=== PATIENT | female | born 1950 | race African-American/Black ===

== ENCOUNTER 2019-01-19 02:06 | Inpatient (IN) | payer MEDICARE ==
[2019-01-19] MEDS ORDERED: Digoxin IV* 0.5 MG/2 ML AMP (0.25 MG/ML) IV SLOW PU ONE (02:35)
[2019-01-19] MEDS ORDERED: Metoprolol Tartrate IV* 1 MG/ML 5 ML VIAL IV ONE (02:35)
--- NOTE | 2019-01-19 02:36 | ED ---
Palpitations / Dysrhythmia - HPI Summary HPI Summary: A 68 y/o female presents to [facility] with a chief complaint of palpitations for the past few hours. She has a Hx of a-fib and claims that ever since her cardiac ablation two years ago, for about every week she has had one episode of a-fib that lasts for minutes but then is resolved. Today her heart was racing and would not stop. 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 She denies any CP. Before her ablation she had a cardioversion. She notes that she does not come into the ED for these episodes of a-fib but does meet with her senior quantity surveyor, Dr. Avila. She takes Eliquis regularly and also takes Methotrexate and Metoprolol. - History of Current Complaint Chief Complaint: EDDysrhythmPalp Time Seen by Provider: 01/19/19 02:24 Hx Obtained From: Patient Onset/Duration: Sudden Onset, Lasting Hours, Still Present Timing: Constant Severity Initially: Moderate Severity Currently: Moderate Character: Fast, Irregular Aggravating: Nothing Alleviating: Nothing Associated Signs & Symptoms: Negative - CP - Allergy/Home Medications Allergies/Adverse Reactions: Allergies Allergy/AdvReac Type Severity Reaction Status Date / Time atorvastatin Allergy Leg Cramps Verified 01/19/19 03:06 Home Medications: Home Medications Albuterol HFA INHALER* 2 puff INH Q4H PRN 01/19/19 [History Confirmed 01/19/19] Apixaban* [Eliquis*] 5 mg PO BID 01/19/19 [History Confirmed 01/19/19] Benzonatate 1 cap PO TID PRN 01/19/19 [History Confirmed 01/19/19] Cetirizine HCl [All Day Allergy] 10 mg PO DAILY PRN 01/19/19 [History Confirmed 01/19/19] Dulaglutide (NF) [Trulicity (NF)] 1 dose SUBCUT WEEKLY 01/19/19 [History Confirmed 01/19/19] Folic Acid TAB* [Folvite TAB*] 1 tab PO DAILY 01/19/19 [History Confirmed ] Hydroxychloroquine Sulfate [Plaquenil] 200 mg PO BID 01/19/19 [History Confirmed 01/19/19] Methotrexate TAB* 2.5 mg PO SEE INSTRUCTIONS 01/19/19 [History Confirmed ] Metoprolol Tartrate TAB* [Lopressor TAB*] 50 mg PO BID 01/19/19 [History Confirmed 01/19/19] Multivit-Min/Iron/Folic/Lutein [Centrum Silver Women Tablet] 1 tab PO DAILY 05/02 [History Confirmed 01/19/19] Omeprazole 20 mg PO DAILY 01/19/19 [History Confirmed 01/19/19] Rosuvastatin Calcium 20 mg PO DAILY 01/19/19 [History Confirmed 01/19/19] Torsemide TAB* [Demadex 20 MG*] 20 mg PO DAILY 01/19/19 [History Confirmed 01/19] metFORMIN* [Glucophage 500 MG TAB *] 500 mg PO DAILY 01/19/19 [History Confirmed 01/19/19] PMH/Surg Hx/FS Hx/Imm Hx Endocrine/Hematology History: Reports: Hx Diabetes - TYPE II Denies: Hx Anticoagulant Therapy Cardiovascular History: Reports: Hx Angina, Hx Hypercholesterolemia, Hx Valvular Heart Disease - MURMUR OF UNKNOWN ORIGIN STATED PT, Other Cardiovascular Problems/Disorders - PT.STATES SHE HAS AN IRREGULAR HEART BEAT Denies: Hx Hypertension, Hx Pacemaker/ICD Respiratory History: Reports: Hx Asthma - PT states brought on by allergies History: Reports: Other Problems/Disorders - pt reports hx of stress incontintnce Denies: Hx Renal Disease Musculoskeletal History: Reports: Hx Arthritis, Hx Rheumatoid Arthritis Sensory History: Reports: Hx Contacts or Glasses Denies: Hx Hearing Aid Opthamlomology History: Reports: Hx Contacts or Glasses Psychiatric History: Reports: Hx Depression Denies: Hx Panic Disorder - Surgical History Surgery Procedure, Year, and Place: left total knee replacement; hysterectomy, HEART CATH - NO STENTS Hx Anesthesia Reactions: No Infectious Disease History: No Infectious Disease History: Denies: Traveled Outside the [place] in Last 30 Days - Family History Known Family History: Negative: Blood Disorder - Social History Alcohol Use: None Substance Use Type: Reports: None Smoking Status (MU): Never Smoked Tobacco Review of Systems Negative: Fever Positive: Palpitations - a-fib, "heart is racing". Negative: Chest Pain Positive: Headache All Other Systems Reviewed And Are Negative: Yes Physical Exam - Summary Physical Exam Summary: VITAL SIGNS: Reviewed. GENERAL: Patient is a morbidly obese FEMALE who is lying comfortable in the stretcher. Patient is not in any acute respiratory distress. HEAD AND FACE: No signs of trauma. No ecchymosis, hematomas or skull depressions. No sinus tenderness. EYES: PERRLA, EOMI x 2, No injected conjunctiva, no nystagmus. EARS: Hearing grossly intact. Ear canals and tympanic membranes are within normal limits. MOUTH: Oropharynx within normal limits. NECK: Supple, trachea is midline, no adenopathy, no JVD, no carotid bruit, no c- spine tenderness, neck with full ROM CHEST: Symmetric, no tenderness at palpation LUNGS: Clear to auscultation bilaterally. No wheezing or crackles. CVS: Irregular tachycardia, S1 and S2 present, no murmurs or gallops appreciated. ABDOMEN: Soft, non-tender. No signs of distention. No rebound no guarding, and no masses palpated. Bowel sounds are normal. EXTREMITIES: FROM in all major joints, no edema, no cyanosis or clubbing. NEURO: Alert and oriented x 3. No acute neurological deficits. Speech is normal and follows commands. SKIN: Dry and warm Triage Information Reviewed: Yes Vital Signs On Initial Exam: Initial Vitals Temp Pulse Resp BP Pulse Ox 97.2 F 109 18 126/96 100 01/19/19 02:09 01/19/19 02:09 01/19/19 02:09 01/19/19 02:09 01/19/19 02:09 Vital Signs Reviewed: Yes Diagnostics - Vital Signs Vital Signs Temp Pulse Resp BP Pulse Ox 01/19/19 02:09 97.2 F 109 18 126/96 100 - Laboratory Result Diagrams: 01/20/19 05:43 01/20/19 07:14 Lab Statement: Any lab studies that have been ordered have been reviewed, and results considered in the medical decision making process. - EKG 02:20 Cardiac Rate: Other Rate - Atrial fibrillation at 123 bpm EKG Rhythm: Atrial Fibrillation Summary of EKG Findings: EKG at 02:20 showed Atrial fibrillation at 123 bpm. Re-Evaluation - Re-Evaluation First Eval Re-Evaluation Time: 04:27 Change: Unchanged Comment: I offered the patient cardioversion but the patient declined. Second Eval Re-Evaluation Time: 05:05 Change: Unchanged Comment: Discussed plan for admission. Course/Dx - Course Course Of Treatment: A 68 y/o female presents to [facility] with a chief complaint of palpitations. She has a Hx of a-fib and claims that her heart was racing and would not stope. She also has a EATON but denies CP. The physical exam revealed irregular tachycardia and that she is morbidly obese. In the ED course the patient was given Metoprolol IV, Digoxin IV and Sodium chloride IV. EKG at 02: 20 showed Atrial fibrillation at 123 bpm. Bloodwork and chemistries obtained. I offered the patient cardioversion but the patient declined. After the patient was given Cardizem 20 mg IV push she experienced frequent pauses with dizziness. One hour from the Cardizem bolus the pauses have resolved. Patient's HR is around [address] Discuss[address] case [address] Cole, hospitalist, who accepted the patient for admission. Pt will be admitted for observation and is agreeable with this plan. - Diagnoses Provider Diagnoses: Atrial fibrillation - Critical Care Time Critical Care Time: 30-74 min - 40 mins Discharge - Sign-Out/Discharge Documenting (check all that apply): Patient Departure - admit Patient Received Moderate/Deep Sedation with Procedure: No - Discharge Plan Condition: Fair Disposition: ADMITTED TO [facility] - Billing Disposition and Condition Condition: FAIR Disposition: Admitted to [facility] - Attestation Statements Document Initiated by Gloria: Yes Documenting Scribe: Mohamud Marshall Provider For Whom Gloria is Documenting (Include Credential): Giorgi Collado MD Scribe Attestation: Mohamud Andersen scribed for Giorgi Collado MD on 01/20/19 at 1945. Scribe Documentation Reviewed: Yes Provider Attestation: The documentation as recorded by the Mohamud lo accurately reflects the service I personally performed and the decisions made by me, Giorgi Collado MD Status of Scribe Document: Viewed
[2019-01-19] MEDS: NS 0.9% 1000 ML** 1,000 ML IV ONE ×2 (02:45→05:05)
[2019-01-19 02:56] LABS: ABS Eosinophils 0.2 10^3/ul (0-0.6); ABS Lymphocytes 0.8 10^3/ul (1.0-4.8); ABS Monocytes 0.4 10^3/ul (0-0.8); ABS Neutrophils 1.9 10^3/ul (1.5-7.7); Eosinophil % 4.9 %; Hematocrit 33 % (35-47); Hemoglobin 11.1 g/dL (12.0-16.0); Lymphocyte % 25.6 %; Mean Corpuscular HGB Conc 33 g/dL (31-36); Mean Corpuscular Hemoglobin 32 pg (27-31); Mean Corpuscular Volume 97 fL (80-97); Mean Platelet Volume 9.1 fL (7.4-10.4); Platelet Count 171 10^3/uL (150-450); Red Blood Count 3.46 10^6 /uL (3.70-4.87); Red Cell Distribution Width 15 % (10.5-15); White Blood Count 3.3 10^3/uL (3.5-10.8)
[2019-01-19 03:03] LABS: Activated Partial Thrombo Time 33.5 seconds (26.0-36.3); INR 1.17 (0.82-1.09)
[2019-01-19 03:14] LABS: Albumin 4.1 g/dL (3.2-5.2); Albumin/Globulin Ratio 1.3 (1-3); BUN/Creatinine Ratio 20.8 (8-20); Calcium 9.6 mg/dL (8.6-10.3); EGFR African American 44.1 (>60); EGFR Non-African American 36.4 (>60); Globulin 3.1 g/dL (2-4); Magnesium 1.8 mg/dL (1.9-2.7); Potassium 3.5 mmol/L (3.5-5.0); Total Bilirubin 1.3 mg/dL (0.2-1.0); Total Protein 7.2 g/dL (6.4-8.9)
[2019-01-19 03:16] LABS: Troponin I 0.02 ng/mL (<0.04)
[2019-01-19 03:48] LABS: TSH (Thyroid Stimulating Horm) 3.6 mcIU/mL (0.34-5.60)
[2019-01-19] MEDS ORDERED: Diltiazem IV push/loading dose 5 MG/ML 5 ML vial (25 mg) IV SLOW PU ONE (04:27)
[2019-01-19] MEDS ORDERED: Calcium Gluconate INJ* 1 GM in NS 0.9% 100 ML* 100 ML IVPB ONE ×2 (05:08→05:18)
[2019-01-19] MEDS ORDERED: Ondansetron INJ* 2 MG/ML VIAL IV PRN (05:51)
[2019-01-19] MEDS ORDERED: Acetaminophen TAB* 325 MG PO PRN (05:51)
[2019-01-19] MEDS ORDERED: Magnesium Sulfate 1 GM IV* 1 GM/100 ML BAG IV ONE (05:51)
[2019-01-19] MEDS ORDERED: Al Hydrox/Mg Hydrox/Simet LIQ* 30 ML UDC PO PRN (05:51)
[2019-01-19] MEDS ORDERED: Albuterol HFA INHALER* 8 gm MDI INH PRN (05:54)
[2019-01-19] MEDS ORDERED: Dextrose 50% Syringe 50 ML* 25 GM/50 ML SYRINGE IV PUSH PRN (05:56)
[2019-01-19 06:55] LABS: HDL Cholesterol 44.9 mg/dL
[2019-01-19 06:56] LABS: Troponin I 0.02 ng/mL (<0.04)
[2019-01-19] MEDS ORDERED: Metoprolol Tartrate TAB* 50 mg PO SCH (09:00)
[2019-01-19] MEDS ORDERED: Apixaban* 5 MG TAB PO SCH (09:00)
--- NOTE | 2019-01-19 09:13 | HP ---
CC: Natalie Harris MD; Dr. Avila* HISTORY AND PHYSICAL: DATE OF ADMISSION: 01/19/19 TIME OF EVALUATION: 0600 PRIMARY CARE PHYSICIAN: Natalie Harris MD. PUBLIC ADDRESS SYSTEM OPERATOR: Dr. Avila. CHIEF COMPLAINT: Palpitations. HISTORY OF PRESENT ILLNESS: This is a 68-year-old female with a past medical history of paroxysmal atrial fibrillation, on Eliquis, who presents to the emergency room with palpitations and elevated blood pressure. The patient states she went to bed around 1215, and about 15 minutes while resting in bed, she noticed palpitation with heart racing. She does get these episodes now about once a week. Normally, if she takes a deep breath and relax, the palpitations resolve on their own. However, 15 to 20 minutes later, she still was having palpitation. She got up to check her blood pressure, it was very high and she was also having a posterior headache. She thought she will come to the emergency room for further evaluation because she never had a blood pressure that high before. The patient denies any fever. No URI symptoms. She has had an unintentional 4-pound weight loss, normal lower extremity swelling. She had 1 sharp episode of left-sided chest pain and a few twinges here and there. No shortness of breath. No diaphoresis. No nausea. She is scheduled to follow up next week with Dr. Avila to have an echocardiogram. She has not had a stress test in a while. Currently, she is dizzy. In the emergency room, the patient had labs and imaging. She was initially given Lopressor [address] Collado offered a cardioversion. She declined stating she has had this in the past and it does not work for her. He discussed lowering her rate and having her follow up with her lease administrator, which is what she wanted. She was given Cardizem 20 mg. Shortly after that, she developed several frequent pauses 3 to 6 seconds with associated dizziness. At that point, the patient was referred to the hospitalist service for further evaluation. PAST MEDICAL HISTORY: 1. Paroxysmal atrial fibrillation, status post ablation and cardioversion, followed by Dr. Avila. 2. Rheumatoid arthritis. 3. Asthma. 4. Seasonal allergies. 5. Osteoporosis. 6. Stress incontinence. 7. Osteoarthritis. 8. Diabetes. 9. Obstructive sleep apnea, on CPAP of 9. MEDICATIONS: 1. Metformin 500 mg p.o. daily. 2. Plaquenil 200 mg p.o. b.i.d. 3. Benzonatate 1 cap p.o. t.i.d. as needed. 4. Demadex 20 mg p.o. daily. 5. Dulaglutide 1 dose subcu weekly. 6. Rosuvastatin 20 mg daily. 7. Omeprazole 20 mg daily. 8. Metoprolol 50 mg p.o. b.i.d. 9. Methotrexate 2.5 mg take 3 tabs weekly. 10. Folic acid 1 tab daily. 11. Cetirizine 10 mg p.o. daily as needed. 12. Centrum daily. 13. Eliquis 5 mg p.o. b.i.d. 14. Albuterol 2 puffs inhaled q.4 hours as needed. ALLERGIES: ATORVASTATIN, leg cramps. FAMILY HISTORY: Mother at age 47 related to complicated dermatomyositis and an [place]. Father from kidney cancer and diabetes at age 73. SOCIAL HISTORY: The patient lives at home with her , who is her healthcare proxy. 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 No history of smoking, alcohol, or illicit drug use. Code status is full code. REVIEW OF SYSTEMS: A 14-point review of systems as mentioned in the HPI, otherwise negative. PHYSICAL EXAMINATION GENERAL: No acute distress, resting comfortably. VITAL SIGNS: Temp is 97.2, pulse rate varies from 90 to 100 with frequent 3- to 6- second pauses, respiratory rate 14, oxygen saturation 99% on room air, blood pressure 131/72. HEENT: Head: Normocephalic. Pupils equal and reactive, anicteric. Oropharynx : Mucous membranes moist. NECK: Supple. No adenopathy. RESPIRATORY: Diminished breath sounds. No wheezes, rhonchi, or rales. CARDIAC: Irregularly irregular rate and rhythm. Soft systolic murmur heard throughout. ABDOMEN: Morbidly obese, soft, nontender, nondistended. EXTREMITIES: Trace pedal edema, +1 DP. NEUROLOGIC: Alert and oriented x3. No gross focal neurologic deficits. LABORATORY DATA: White count 3.3, hemoglobin 11.1, hematocrit 33, platelets 171. INR is 1.17. Sodium 140, potassium 3.5, chloride 102, bicarb 30, BUN 30, creatinine 1.44, glucose 139, mag is 1.8, total bili is 1.30. TSH is 3.6. RADIOGRAPHIC DATA: EKG shows rapid atrial fibrillation with a rate of 123. ASSESSMENT: This is a 68-year-old female with past medical history of paroxysmal atrial fibrillation, who presents to the emergency room with palpitations and elevated blood pressure, subsequently after getting rate controlling medications developed frequent pauses. 1. Rapid atrial fibrillation now with frequent pauses. Assessment: Likely related to the medication she received, most likely culprit was Cardizem as she did not have pauses prior to getting Cardizem. It did not seem to be acute coronary syndrome contributing to her paroxysmal atrial fibrillation. It seems this is an ongoing issue for her and may need some improvement in her rate controlling medications, possibly uptitrating her metoprolol, but would not do this right now in the setting of her frequent pauses. Plan: We will admit her for observation to [address] [place] [address]. We will order an echo, trend her troponin, and we will continue her on metoprolol but we will hold if she continues to have frequent pauses. The patient does not seemed to tolerate diltiazem. Recommend avoiding this medication altogether. If she continues to have pauses or issues with rapid atrial fibrillation and challenges with rate control, recommend cardiology consultation. We will also continue on her Eliquis. 2. Bump in BUN and creatinine, could be related to her rapid atrial fibrillation. We will hold her torsemide today, renally dose her medications and I am going to repeat her labs in the morning. 3. Diabetes. Hold her oral agents, place her on lispro sliding scale, check hemoglobin A1c, and place her on a consistent carb diet. 4. Gastroesophageal reflux disease. Continue her on pantoprazole. 5. Rheumatoid arthritis. Hold her methotrexate. Continue on her Plaquenil. 6. Asthma. Continue on albuterol inhaler as needed. 7. FEN: Diabetic diet. 8. DVT prophylaxis: The patient's scores high risk. She is on Eliquis. 9. Code status: Full code. PATIENT TIME: Greater than 40 minutes was spent doing the history of and physical, more than half the time spent in direct patient contact. [id number]/[facility] #: [id number] RAJAN
[2019-01-19] MEDS: Insulin LISPRO* 1 UNITS UNIT SUBCUT SCH ×3 (09:51→17:11)
[2019-01-19] MEDS: Folic Acid TAB* 1 MG PO SCH (09:54)
[2019-01-19] MEDS: Hydroxychloroquine TAB* 200 MG PO SCH ×2 (09:55→20:22)
[2019-01-19] MEDS: Pantoprazole TAB * 40 MG TAB PO SCH (09:55)
[2019-01-19] MEDS: CMC: Rosuvastatin (NF) 20 MG TAB PO SCH (12:21)
[2019-01-19] MEDS ORDERED: Potassium Chlor TAB* 20 MEQ TAB.ER PO ONE (12:48)
--- NOTE | 2019-01-19 13:53 | CONS ---
CONSULTATION REPORT: DATE OF CONSULT: 01/19/19 ATTENDING PHYSICIAN: Dr. Karel Conn, Cardiology* (dictated by Carmelina Burk NP). PRIMARY OPERATING ROOM SURGICAL TECHNICIAN: Dr. Avila. REASON FOR CONSULTATION: Tachybrady syndrome with a 6-second sinus pause. CHIEF COMPLAINT: Elevated blood pressure, palpitations, dizziness. HISTORY OF PRESENT ILLNESS: This is a pleasant 68-year-old female patient with a notable history of A-flutter with successful typical A-flutter ablation in December 2016 on Eliquis and Lopressor therapy in addition to type 2 diabetes mellitus, hyperlipidemia, rheumatoid arthritis, sleep apnea, and venous insufficiency. She states that it is not unusual for her to manifest symptoms of A-flutter, which historically had been palpitations with a sensation of her heart racing every 2 to 3 weeks; however, she has noticed increased frequency and symptomatology over the last couple of months. Retrospectively, she realized she has also had increased dizziness and lightheadedness and in fact last Thursday after standing up and walking to her car, she developed profound dizziness. Denies syncope. She does report palpitations intermittently as well. This morning around 12:15 a.m. after lying down in bed, she developed a sensation of her heart racing with palpitations. Apparently, she rested for 15 minutes, she got up and took her blood pressure and it was 170/105, symptoms were ongoing, thus she presented to [facility] for further evaluation. While being evaluated in the emergency department, she was noted to be in AFib/flutter with labile heart rate control ( HR 100), she was given 0.5 mcg of IV digoxin at 0246 followed by 5 mg of IV Lopressor 0252 followed by 20 mg if IV diltiazem at 0437. Then, 30 minutes after being given IV diltiazem, she had a nearly 6-second pause captured on telemetry with symptoms of dizziness at that tyler, however after trending telemetry it appears at 1246am prior to administration of AVN agents she had a 4.5 second pause.. She was admitted to the 4th floor and we were asked to see the patient in consultation due to tachybrady syndrome with sinus arrest. She has continued to have pauses up to 5 seconds with correlation of dizziness, lightheadedness. No syncope. She denies chest pain, dyspnea on exertion, recent infection, hospitalization, or changes in medications. Last ischemic evaluation according to Dr. Tera Avila who I personally spoke with on the phone was via a dobutamine stress echo in 2011, PAT was induced at that time; however, there was no ischemia. Last heart catheterization according to Dr. Tera Avila was in 1993, the patient had normal coronary arteries at that time. PAST MEDICAL HISTORY: Includes: 1. PAT. 2. A-flutter. 3. Diabetes. 4. Hyperlipidemia. 5. Rheumatoid arthritis. 6. GERD. 7. Sleep apnea. 8. Venous insufficiency. PAST SURGICAL HISTORY: Includes: 1. Left total knee arthroplasty. 2. EP study with failure to ablate A tach. 3. Successful typical A-flutter in December 2016. 4. Partial hysterectomy. 5. Tubal ligation. HOME MEDICATIONS: Per admission med rec. ALLERGIES: Include LIPITOR, which causes myalgias. FAMILY HISTORY: Noncontributory. SOCIAL HISTORY: The patient denies tobacco abuse, alcohol abuse, or drug abuse. 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 She is and lives at home with her . She remains active by babysitting her 9-month-old grandson. REVIEW OF SYSTEMS: All systems have been reviewed and otherwise negative except what is above mentioned in the HPI. PHYSICAL EXAM: Temperature 97.3, heart rate 98, respirations 18, blood pressure 130/89. General: The patient is lying in bed comfortable; upon entering the room offers no complaints. Appears in no apparent distress, although she was having intermittent dizziness with pauses while I was examining her. HEENT: Head is atraumatic, normocephalic. Oral mucosa is moist. Tongue is midline. Neck: Supple. Trachea midline. Unfortunately due to body habitus, I am unable to assess for JVD. No thyromegaly noted. Cardiac : Normal S1, S2. Irregular rate and rhythm. No murmur, rub, or gallop noted. Lungs: Auscultated posteriorly. No evidence of adventitious breath sounds. Respirations are nonlabored. /GI: Abdomen is obese, nontender, normoactive bowel sounds x4. Extremities: No pitting edema. No clubbing. No cyanosis. Positive varicose veins. Skin: Intact. No evidence of jaundice, rashes, or ecchymosis appreciated. DIAGNOSTIC STUDIES/LAB DATA: Blood work: White count 3.3, hemoglobin 11.1, hematocrit 33, platelets 171. Sodium 140, potassium 3.5, chloride 102, carbon dioxide 30, BUN 30, creatinine 1.4, magnesium 1.8. Troponin negative x2. Hemoglobin A1c is 7.3. Bilirubin 1.3. EKG demonstrates A-flutter 2:1 To 3:1 conduction with rate of 100. Telemetry reviewed; the patient has been in AFib/A-flutter with periods of bradycardia, heart rate in the 40s with pauses upwards of 5 seconds with periods of RVR. ASSESSMENT AND PLAN: 1. History of paroxysmal fibrillation/flutter with now tachybrady syndrome. The patient has had symptomatic episodes of sinus arrest upwards of 6 seconds. Initial episode occurred at 1246 lasting 4.5 seconds prior to administration of IV digoxin, IV Lopressor, and IV diltiazem therapy. The patient was previously on Lopressor and was having intermittent episodes of dizziness retrospectively the last 2 to 3 months. She reports compliance with Eliquis therapy. Recommendation is dual-chamber pacemaker implantation. I did speak to her primary buying intern, Dr. Tera Avila and updated him with recommendations. We will speak to Dr. Vaughan in reference to arranging the date and time of procedure. 2. Renal insufficiency. Creatinine 1.4, upon further review it looks like her previous baseline was 1 to 1.2. 3. History of hyperlipidemia, on statin therapy. Goal LDL less than 70 given history of diabetes. 4. History of sleep apnea. The patient reports compliance with CPAP therapy. 5. Disposition pending course. The patient is full code. We will speak to Dr. Vaughan about arranging for DC pacemaker implantation. Dr. Conn has personally seen and examined the patient and agrees with the above assessment and plan. Any future questions or concerns, please do not hesitate to contact our practice. CARMELINA BURK NP [id number]/[facility] #: [id number] Patient seen and examined, chart reviewed, d/w Ms. Burk and Dr. Bhatt and Dr. Vaughan am 01/19.. Patient with h/o PAFib , ablation , with recnent progression in tachybrady and dizziness. Noted to have prolonged pauses at approx 12:30 am 01/19 event before addition of digoxin. Patient with recurrent and symptomatic pauses over the course of 01.19.19. Given above findings, I concur with referral for permanant pacer. DDD implant will be delayed in order to allow anticoagulation to reverse Hold eliquis. Transfer to ICU and monitor on bedrest. DR. Bhatt kindly agreed to implant temporary transvenous pacer to prevent prolonged pauses /bradycardia while awaiting permanent pacer. LISSY 01.21.19. MTDD
--- NOTE | 2019-01-19 13:53 | PN ---
Progress Note - Progress Note Date of Service: 01/19/19 Note: Bri has had continued frequent sinus pauses lasting up to 8sec now. The patient has been transferred to the ICU for closer monitoring and possible insertion of a temporary pacemaker. Cardiology consult appreciated. Follow up recommendations from Dr. Bhatt. For now she will have external pacer pads in place.
[2019-01-19] MEDS ORDERED: Midazolam* 1 MG/ML 5 ML VIAL (5 MG) ONE (14:21)
[2019-01-19] MEDS ORDERED: Lidocaine 1% INJ* 10 MG/ML 30 ML SDV ONE (14:21)
[2019-01-19] MEDS ORDERED: fentaNYL* 50 MCG/ML 2 ML VIAL (100 MCG VIAL) ONE (14:21)
--- NOTE | 2019-01-19 15:48 | ECHO ---
*[facility]* [place] [address] Fax #: [phone] Transthoracic Echocardiogram Patient: Robert, Height: 66 in / Bri Beckman 167.6 cm : 1950 Weight: 278.4 lb / Study Date: 01/19/2019 126.6 kg Age: 68 BP: 113 / 73 Gender: F BMI/BSA: 45 kg/m^2 / HR: 93 bpm 2.3 m^2 *[employer]: * Jen King [facility] *Referring Physician: * Maria Teresa Cole *Reading Physician: * Karel Conn MD Indications: Abnormal EKG. History: Murmur. Atrial fibrillation. Risk factors: Hypertension. Diabetes mellitus. Dyslipidemia. Conclusions Summary: 1. Left ventricle: Systolic function is mildly to moderately reduced. The estimated ejection fraction is 40-45%. Systolic function is worse from the study of April 2015. Decreased from 50-55% in 2015. Moderate diffuse hypokinesis. 2. Mitral valve: There is moderate regurgitation. 3. Tricuspid valve: There is mild regurgitation. Study data: Transthoracic echocardiogram. Procedure: Transthoracic echocardiography was performed. Image quality was fair. Complete 2D, spectral Doppler, and color flow Doppler. Location: Bedside. Patient status: Inpatient. The previous study was not available, so comparison is made to the report of April 2015. Rhythm: Atrial fibrillation. Findings Left ventricle: The cavity size is normal. Wall thickness is mildly to moderately increased. Systolic function is mildly to moderately reduced. The estimated ejection fraction is 40-45%. Systolic function is worse from the study of April 2015. Moderate diffuse hypokinesis. Left ventricular diastolic function parameters are indeterminate. Right ventricle: The cavity size is normal. Wall thickness is mildly increased. Systolic function is normal. Systolic pressure is within the normal range. Left atrium: The atrium is severely dilated. Right atrium: The atrium is mildly to moderately dilated. Mitral valve: The leaflets are normal thickness. There is no evidence of stenosis. There is moderate regurgitation. The peak diastolic gradient is 3.4 mm Hg. Aortic valve: The valve is trileaflet. The leaflets are normal thickness. There is no evidence of stenosis. There is no significant regurgitation. The ratio of LVOT to aortic valve peak velocity is 0.77. The peak systolic gradient is 4.0 mm Hg. Tricuspid valve: The leaflets are normal thickness. There is no evidence of stenosis. There is mild regurgitation. Pulmonic valve: Not well visualized. There is no significant regurgitation. The peak systolic gradient is 2.0 mm Hg. Aorta: The aorta is normal. Pericardium: There is no significant pericardial effusion. Pulmonary arteries: Not well visualized. Systemic veins: Inferior vena cava: The vessel is normal in size. The respirophasic diameter changes are in the normal range (>= 50%). Measurements Left ventricle Value Ref Aortic valve Value Ref FADIA, LAX 4.2 cm 3.8 - 5.2 Indira diam, ED 2.2 cm ----- ESD, LAX 2.9 cm 2.2 - 3.5 Peak v, S 1.04 m/sec ----- FS, LAX 31 % 27 - 45 Peak grad, S 4.0 mm Hg ----- PW, ED, LAX (H) 1.2 cm 0.6 - 0.9 EF 60 % 54 - 74 Mitral valve Value Ref E', lat indira, TDI 13.0 cm/sec >=10.0 Peak E 0.92 m/sec --- -- E/e', lat indira, 7 Peak A 0.01 m/sec ----- TDI Decel time 100 ms ----- E', med indira, TDI 10.0 cm/sec >=7.0 Peak grad, D 3.4 mm Hg --- -- E/e', med indira, 9 Peak E/A ratio 131.9 ----- TDI E', avg, TDI 11.5 cm/sec Pulmonic valve Value Ref E/e', avg, TDI 8 <=14 Peak v, S 0.72 m/sec --- -- Peak grad, S 2.0 mm Hg ----- LVOT Value Ref Peak joceline, S 0.8 m/sec Tricuspid valve Value Ref TR peak v 2.01 m/sec <=2.8 Ventricular septum Value Ref Peak RV-RA grad, S 16 mm Hg ----- IVS, ED, LAX (H) 1.5 cm 0.6 - 0.9 IVS, ED (H) 1.5 cm 0.6 - 0.9 Aortic root Value Ref Root diam 3.1 cm <4.4 Right ventricle Value Ref FADIA, LAX 2.8 cm Aortic arch Value Ref FADIA minor ax, A4C 2.8 cm 1.9 - 3.5 Arch diam 2.4 cm ----- mid Pressure, S 24 mm Hg Decending aorta Value Ref Anayeli peak joceline 0.51 m/sec ----- Left atrium Value Ref AP dim, ES (H) 4.70 cm 2.70 - Pulmonary artery Value Ref 3.80 Pressure, S 22.0 mm Hg ----- ML dim, A4C 5.8 cm SI dim, A4C 7.3 cm Inferior vena cava Value Ref Vol/bsa, ES, 1-p (H) 57 ml/m^2 11 - 40 Diam 2.0 cm ----- A4C Right atrium Value Ref SI dim, ES (H) 5.4 cm 3.4 - 5.3 ML dim, ES, A4C (H) 4.8 cm 2.6 - 4.4 Estimated RAP 8 mm Hg Legend: (L) and (H) dwain values outside specified reference range. Prepared and electronically signed by Karel Conn MD 01/19/2019 15:47
--- NOTE | 2019-01-19 17:33 | CATH ---
CC: Dr. Karel Conn; Dr. Milan Vaughan; Dr. Tera Avila; Dr. Natalie Harris at [facility] on [facility] in [place]* TEMPORARY PACEMAKER PLACEMENT: DATE OF PROCEDURE: 01/19/19 INDICATION FOR THE PROCEDURE: The patient has a history of atrial fibrillation and has been noted to have marked pauses up to 8 seconds in nature, but is on Eliquis. Request was made by Dr. Karel Conn for placement of a temporary pacemaker wire in order to allow the Eliquis to wear off before Dr. Milan Vaughan performs a permanent pacemaker placement. APPROACH: Of note, the right arm was assessed to try to see if the basilic vein was of a size that could easily be cannulated for temporary pacemaker placement. Unfortunately, it was not and as such the right femoral vein approach was utilized. EQUIPMENT: 1. Right femoral vein sheath, 11-Andorran, 5-Andorran sheath. 2. Pacing wire, a 5-Andorran [place]s flow directed pacing wire. MEDICATIONS GIVEN: A total of 37.5 mcg of fentanyl were given intravenously, 1 mg of Versed, 1% Xylocaine was utilized locally. DESCRIPTION OF PROCEDURE: The patient was prepped and draped in a sterile fashion. A formal time-out was performed. The right femoral vein was cannulated under ultrasound guidance utilizing a microcatheter. Following this , this was exchanged for a 5-Andorran sheath. Following this, the 5-Andorran flow directed pacing wire was advanced to the RV apex and checked for capture and sensitivity, captured down to less than 0.5 mA. It was then set to an mA of 6, backup rate of 40 with full demand. The pacemaker and sheath were sutured in place. RESULTS: Successful placement of a temporary pacing wire in light of the patient's profound pauses while waiting for Eliquis anticoagulation effect to wear off. [id number]/[facility] #: [id number] [facility]
--- NOTE | 2019-01-19 21:17 | PN ---
Progress Note - Progress Note Date of Service: 01/19/19 Note: Per RN patient is supposed to be supine all night s/p pacemaker placement. Unable to get on bedpan in time and is having frequent incontinent episodes, requesting a villarreal. Villarreal ordered
[2019-01-20 05:55] LABS: ABS Eosinophils 0.1 10^3/ul (0-0.6); ABS Lymphocytes 0.7 10^3/ul (1.0-4.8); ABS Monocytes 0.3 10^3/ul (0-0.8); ABS Neutrophils 2.2 10^3/ul (1.5-7.7); Hematocrit 36 % (35-47); Hemoglobin 11.8 g/dL (12.0-16.0); Lymphocyte % 19.4 %; Mean Corpuscular HGB Conc 33 g/dL (31-36); Mean Corpuscular Hemoglobin 32 pg (27-31); Mean Corpuscular Volume 97 fL (80-97); Mean Platelet Volume 8.8 fL (7.4-10.4); Platelet Count 169 10^3/uL (150-450); Red Blood Count 3.66 10^6 /uL (3.70-4.87); Red Cell Distribution Width 15 % (10.5-15); White Blood Count 3.4 10^3/uL (3.5-10.8)
[2019-01-20 06:04] LABS: BUN/Creatinine Ratio 17.7 (8-20); Blood Urea Nitrogen 17 mg/dL (6-24); CO2 Carbon Dioxide 23 mmol/L (22-32); Chloride 109 mmol/L (101-111); EGFR African American 70.4 (>60); EGFR Non-African American 58.1 (>60); Glucose 119 mg/dL (70-100); Sodium 137 mmol/L (135-145)
[2019-01-20 06:06] LABS: Anion Gap 5 mmol/L (2-11)
[2019-01-20] MEDS: Insulin LISPRO* 1 UNITS UNIT SUBCUT SCH ×3 (07:09→17:48)
[2019-01-20] MEDS ORDERED: ceFAZolin VIAL(*) 1 GM in NS 0.9% 50 ML* 50 ML IVPB ONE (07:49)
[2019-01-20] MEDS ORDERED: ceFAZolin 2 GM PREMIX in ORs 2 GM/50 ML BAG IVPB ONE (07:49)
[2019-01-20] MEDS: Folic Acid TAB* 1 MG PO SCH (07:56)
[2019-01-20] MEDS: Pantoprazole TAB * 40 MG TAB PO SCH (07:56)
[2019-01-20] MEDS: CMC: Rosuvastatin (NF) 20 MG TAB PO SCH (07:56)
[2019-01-20] MEDS: Hydroxychloroquine TAB* 200 MG PO SCH ×2 (07:56→20:23)
[2019-01-20 08:11] LABS: Potassium Redraw 3.7 mmol/L (3.5-5.0)
--- NOTE | 2019-01-20 08:46 | PN ---
Subjective Date of Service: 01/20/19 Interval History: Pt is feeling well. She has not had any more dizzy spells. She has had intermittent pacing per nursing notes. The patient met Dr. Vaughan this AM and is on the schedule for tomorrow at 0700 for a permanent pacer. Objective Active Medications: Acetaminophen (Tylenol Tab*) 650 mg PO Q4H PRN PRN Reason: FEVER/PAIN Al Hydrox/Mg Hydrox/Simethicone (Maalox Plus*) 30 ml PO Q6H PRN PRN Reason: INDIGESTION Albuterol (Ventolin Hfa Inhaler*) 2 puff INH Q4H PRN PRN Reason: SOB/WHEEZING Dextrose (D50w Syringe 50 Ml*) 12.5 gm IV PUSH .FOR FS < 60 - SS PRN PRN Reason: FS < 60 Enoxaparin Sodium (Lovenox(*)) 60 mg SUBCUT Q24H [facility] Stop: 01/20/19 23:59 Folic Acid (Folvite Tab*) 1 mg PO DAILY [facility] Last Admin: 01/20/19 07:56 Dose: 1 mg Hydroxychloroquine Sulfate (Plaquenil Tab*) 200 mg PO BID [facility] Last Admin: 01/20/19 07:56 Dose: 200 mg Sodium Chloride (Ns 0.9% 1000 Ml) 1,000 mls @ 100 mls/hr IV PER RATE [facility] Stop: 01/21/19 12:00 Cefazolin Sodium/Dextrose (Kefzol 2 Gm Premix In Ors(*)) 2 gm in 50 mls @ 100 mls/hr IVPB 0700 ONE Stop: 01/21/19 07:29 Cefazolin Sodium 1 gm/ Sodium (Chloride) 10 mls @ 0 mls/hr .SEE ORDER ONCE ONE Stop: 01/21/19 07:01 Insulin Human Lispro (Humalog*) 0 units SUBCUT AC [facility]; Protocol Last Admin: 01/20/19 07:09 Dose: Not Given Ondansetron HCl (Zofran Inj*) 4 mg IV Q4H PRN PRN Reason: NAUSEA/VOMITING Pantoprazole Sodium (Protonix Tab*) 40 mg PO DAILY [facility] Last Admin: 01/20/19 07:56 Dose: 40 mg Rosuvastatin Calcium (Crestor (Nf)) 20 mg PO DAILY [facility] Last Admin: 01/20/19 07:56 Dose: 20 mg Vital Signs - 8 hr 01/20/19 01/20/19 01/20/19 01:00 01:01 01:06 Temperature 98.1 F 98.1 F 97.7 F Pulse Rate 86 91 92 Respiratory 19 20 21 Rate Blood Pressure 95/55 (mmHg) O2 Sat by Pulse 98 99 98 Oximetry 01/20/19 01/20/19 01/20/19 02:00 03:00 03:01 Temperature 97.7 F 97.7 F 97.7 F Pulse Rate 130 65 83 Respiratory 25 17 17 Rate Blood Pressure 87/65 122/72 (mmHg) O2 Sat by Pulse 100 100 99 Oximetry 01/20/19 01/20/19 01/20/19 04:00 04:01 05:00 Temperature 97.5 F 97.5 F 97.5 F Pulse Rate 87 82 93 Respiratory 20 19 22 Rate Blood Pressure 119/76 (mmHg) O2 Sat by Pulse 99 98 100 Oximetry 01/20/19 01/20/19 01/20/19 05:01 06:00 06:01 Temperature 97.5 F 97.7 F 97.7 F Pulse Rate 93 99 89 Respiratory 17 16 16 Rate Blood Pressure 128/77 120/81 (mmHg) O2 Sat by Pulse 99 94 98 Oximetry 01/20/19 01/20/19 01/20/19 07:00 07:01 07:05 Temperature 97.9 F 97.9 F 97.9 F Pulse Rate 94 89 87 Respiratory 18 18 22 Rate Blood Pressure 144/72 144/72 (mmHg) O2 Sat by Pulse 98 96 96 Oximetry 01/20/19 07:48 Temperature 97.2 F Pulse Rate Respiratory Rate Blood Pressure (mmHg) O2 Sat by Pulse Oximetry Oxygen Devices in Use Now: None Appearance: Middle aged female lying flat on her back, NAD Eyes: No Scleral Icterus Ears/Nose/Mouth/Throat: Mucous Membranes Moist Respiratory: Symmetrical Chest Expansion and Respiratory Effort, Clear to Auscultation - anteriorly Cardiovascular: NL Sounds; No Murmurs; No JVD, No Edema, - - irregularly irregular, controlled rate currently, good pulse in R foot Abdominal: NL Sounds; No Tenderness; No Distention Extremities: No Clubbing, Cyanosis Skin: No Nodules or Sclerosis Neurological: Alert and Oriented x 3 Result Diagrams: 01/20/19 05:43 01/20/19 07:14 Microbiology and Other Data: Microbiology 01/19/19 13:50 Nasal Screen MRSA (PCR) - Final Nasal Mrsa Not Detected Assess/Plan/Problems-Billing Ms Jones is a 68 yo F who has a h/o PAF, type II DM and RA who presented to the ER with c/o dizziness and was found to be in rapid afib/flutter with frequent pauses requiring placement of a temporary pacer wire yesterday. - Patient Problems (1) Afib Current Visit: Yes Status: Acute Code(s): I48.91 - UNSPECIFIED ATRIAL FIBRILLATION SNOMED Code(s): 60379043 Comment: The patient has been in and out of afib per nursing on tele. When in NSR her HR is in the 40's. She had had intermittent pacing due to low HR. Off eliquis in anticipation of pacemaker placement tomorrow. (2) DM w/o complication type II Current Visit: Yes Status: Chronic Code(s): E11.9 - TYPE 2 DIABETES MELLITUS WITHOUT COMPLICATIONS SNOMED Code(s): 133658831 Comment: Blood sugars are under good control, continue lispro sliding scale. Metformin is currently on hold. (3) GERD (gastroesophageal reflux disease) Current Visit: Yes Status: Chronic Code(s): K21.9 - GASTRO-ESOPHAGEAL REFLUX DISEASE WITHOUT ESOPHAGITIS SNOMED Code(s): 588829375 Comment: Stable-continue omeprazole. (4) HLD (hyperlipidemia) Current Visit: No Status: Chronic Code(s): E78.5 - HYPERLIPIDEMIA, UNSPECIFIED SNOMED Code(s): 23549462 Comment: Continue statin. (5) Rheumatoid arthritis Current Visit: Yes Status: Chronic Code(s): M06.9 - RHEUMATOID ARTHRITIS, UNSPECIFIED SNOMED Code(s): 10950073 Comment: Methotrexate on hold. (6) DVT prophylaxis Current Visit: Yes Status: Acute Code(s): WUJ4366 - SNOMED Code(s): 005676304 Comment: lovenox starting tonight (7) Full code status Current Visit: Yes Status: Acute Code(s): Z78.9 - OTHER SPECIFIED HEALTH STATUS SNOMED Code(s): 091819930
[2019-01-20] MEDS ORDERED: Enoxaparin(*) 60 MG/0.6 ML SYR SUBCUT SCH (18:00)
[2019-01-20] MEDS ORDERED: NS 0.9% 1000 ML** 1,000 ML IV SCH (20:00)
[2019-01-21] MEDS: Morphine 4 MG/ML VIAL (1 ml) 4 MG/ML VIAL IV PRN ×3 (02:50→14:53)
[2019-01-21] MEDS ORDERED: Lidocaine 1% INJ* 10 MG/ML 30 ML SDV ONE (06:50)
[2019-01-21] MEDS ORDERED: ceFAZolin VIAL 1 GM in NS *SYRINGE * * 10 ML ONE (07:00)
[2019-01-21] MEDS ORDERED: ceFAZolin 2 GM PREMIX in ORs 2 GM/50 ML BAG IVPB ONE (07:00)
[2019-01-21] MEDS ORDERED: Midazolam* 1 MG/ML 5 ML VIAL (5 MG) ONE (07:06)
[2019-01-21] MEDS ORDERED: fentaNYL* 50 MCG/ML 2 ML VIAL (100 MCG VIAL) ONE (07:06)
[2019-01-21] MEDS ORDERED: Metoprolol Tartrate IV* 1 MG/ML 5 ML VIAL ONE ×3 (07:36→08:03)
[2019-01-21] MEDS ORDERED: Acetaminophen TAB* 325 MG PO PRN (08:16)
--- NOTE | 2019-01-21 08:49 | CONSULT ---
<Carmelina Burk - Last Filed: 01/21/19 08:43> Cardiology Note Patient s/p DC PPM this morning. Patient did not get CV prior to procedure. I spoke with Dr. Vaughan. Eliquis 5mg Po BID to be resumed tomorrow morning 2018 at 0900. Patient will need to go home on Keflex 250mg PO TID x3 days. She has a f/u appointment on 01/28/[address] Vaughan for wound inspection and staple removal. Her primary log rider is Dr. Henleyitc I personally spoke with him. He would like to monitor at this current time and not start AAT. He states that she will need updated stress test prior to initiation of Fleconide but would first like to see her in a couple of weeks in his office. He is aware that she will need a device check in 3-4 weeks and states he will have his office contact her with date and time of appointment but would like her to see implanting physician ( Dr. Vaughan) next week. <Ramone Flores - Last Filed: 01/21/19 11:34> Cardiology Note 01.21.2019 11:35 am. above d/w MARCELINO Cosme and Dr Vaughan. and agree with current plan of care.
--- NOTE | 2019-01-21 09:43 | OP ---
CC: Nirav Avila MD, [place], [place]* OPERATIVE REPORT: DATE OF OPERATION: 01/21/19 - Inpatient, room 444-02 DATE OF : 54 SURGEON: Milan Vaughan MD ANESTHESIA: Local anesthesia with conscious sedation. PRE-OP DIAGNOSES: 1. Sick sinus syndrome. 2. Atrial flutter. POST-OP DIAGNOSES: 1. Sick sinus syndrome. 2. Atrial flutter. OPERATIVE PROCEDURE: Dual chamber pacemaker implantation. ESTIMATED BLOOD LOSS: Nil. COMPLICATIONS: None. INDICATIONS: The patient is a 68-year-old female with history of atrial flutter , who is on an anticoagulation and beta-zenaida medication. She came into the emergency room with tachycardia and atrial flutter. She was having what appeared to be a couple of 4-second pauses or so. The patient was given metoprolol and digoxin for rate control. She had up to 9-second pause. Permanent pacemaker was recommended. DESCRIPTION OF PROCEDURE: The patient was brought to the procedure room in a fasting state. Informed consent had been obtained prior to the procedure. All labs were reviewed. The patient was placed supine on the procedure table. Her left deltopectoral area was cleaned and draped in the usual fashion. A 1% lidocaine was used for local anesthesia. The axillary vein was entered using a Seldinger technique with ultrasound guidance. A guidewire was placed. A second guidewire was placed in the same technique. A 3 cm incision was made and blunt dissection was carried down to the pectoral fascia and a pocket was fashioned for the pacemaker. Over the first guidewire, a 7-Vincentian sheath introducer was placed through which a right ventricular lead was advanced the RV apex. The right ventricular lead is a Medtronic model 5076, serial # [id number]. It had an R-wave sensitivity of 6.5 volts, impedance 1406 ohms, threshold 1 volt at 0.5 milliseconds. The ventricular lead was sutured to the pectoral fascia. Over the second guidewire, a 7-Vincentian sheath introducer was placed through which right atrial lead was advanced to the high right atrium. The right atrial lead is a Medtronic model 5076, serial #[id number], and had P- wave sensitivity of 2, impedance 548 ohms. Atrial threshold cannot be tested as she was in atrial flutter. The ventricular lead was sutured to the pectoral fascia. The pocket was flushed. A generator was attached to the atrial and ventricular lead. The generator is a [employer] model W1DR01, serial # [id number]. The device was placed into the pocket. The surgical incision was closed in 3 layers. Attempts were made for overdrive pacing of the right atrium. Due to the flutter, this was unsuccessful. The patient was returned to [facility] area in stable condition. [id number]/[facility] #: [id number] [facility]ITAL[facility]el[facility]
[2019-01-21] MEDS: Metoprolol Succinate XL TAB* 50 MG PO SCH ×2 (10:17→20:15)
[2019-01-21] MEDS: Pantoprazole TAB * 40 MG TAB PO SCH (10:17)
[2019-01-21] MEDS: Folic Acid TAB* 1 MG PO SCH (10:17)
[2019-01-21] MEDS: CMC: Rosuvastatin (NF) 20 MG TAB PO SCH (12:39)
[2019-01-21] MEDS: Insulin LISPRO* 1 UNITS UNIT SUBCUT SCH ×3 (12:39→19:37)
[2019-01-21] MEDS: Hydroxychloroquine TAB* 200 MG PO SCH ×2 (12:39→21:29)
[2019-01-21] MEDS ORDERED: Dexamethasone IV* 10 MG in NS 0.9% 50 ML* 50 ML IVPB ONE (16:03)
--- NOTE | 2019-01-21 16:17 | PN ---
Subjective Date of Service: 01/21/19 Interval History: Patient was seen on the floor status post PPM placement earlier today by Dr. Vaughan. She is complaining of severe 8/10 right knee pain and now her left knee pain started. She is still in afib on the monitor and rate variable. Past Medical History: Unchanged from Admission Objective Active Medications: Acetaminophen (Tylenol Tab*) 650 mg PO Q4H PRN PRN Reason: FEVER/PAIN Last Admin: 01/21/19 12:51 Dose: 650 mg Al Hydrox/Mg Hydrox/Simethicone (Maalox Plus*) 30 ml PO Q6H PRN PRN Reason: INDIGESTION Albuterol (Ventolin Hfa Inhaler*) 2 puff INH Q4H PRN PRN Reason: SOB/WHEEZING Apixaban (Eliquis*) 5 mg PO BID [facility] Dexamethasone (Decadron Tab*) 2 mg PO TID [facility] Dextrose (D50w Syringe 50 Ml*) 12.5 gm IV PUSH .FOR FS < 60 - SS PRN PRN Reason: FS < 60 Folic Acid (Folvite Tab*) 1 mg PO DAILY [facility] Last Admin: 01/21/19 10:17 Dose: 1 mg Hydroxychloroquine Sulfate (Plaquenil Tab*) 200 mg PO BID [facility] Last Admin: 01/21/19 12:39 Dose: 200 mg Cefazolin Sodium 1 gm/ Sodium (Chloride) 50 mls @ 200 mls/hr IVPB Q8H [facility] Stop: 01/22/19 08:14 Dexamethasone Sodium Phosphate (10 mg/ Sodium Chloride) 52.5 mls @ 210 mls/hr IVPB ONCE ONE Stop: 01/21/19 16:17 Insulin Human Lispro (Humalog*) 0 units SUBCUT [facility]; Protocol Last Admin: 01/21/19 12:50 Dose: 2 unit Metoprolol Succinate (Toprol Xl Tab*) 50 mg PO BID [facility] Last Admin: 01/21/19 10:17 Dose: 50 mg Morphine Sulfate (Morphine 4 Mg/Ml Vial (1 Ml)) 2 mg IV Q4H PRN PRN Reason: PAIN - MILD Last Admin: 01/21/19 14:53 Dose: 2 mg Ondansetron HCl (Zofran Inj*) 4 mg IV Q4H PRN PRN Reason: NAUSEA/VOMITING Pantoprazole Sodium (Protonix Tab*) 40 mg PO DAILY [facility] Last Admin: 01/21/19 10:17 Dose: 40 mg Rosuvastatin Calcium (Crestor (Nf)) 20 mg PO DAILY [facility] Last Admin: 01/21/19 12:39 Dose: 20 mg Vital Signs - 8 hr 01/21/19 01/21/19 01/21/19 08:58 09:16 09:22 Temperature 98 F Pulse Rate 93 Respiratory 16 Rate Blood Pressure 138/87 138/87 140/88 (mmHg) O2 Sat by Pulse 100 Oximetry 01/21/19 01/21/19 01/21/19 09:46 09:53 10:05 Temperature 97.9 F 98 F Pulse Rate 110 95 Respiratory 18 19 Rate Blood Pressure 140/88 120/88 120/88 (mmHg) O2 Sat by Pulse 99 100 Oximetry 01/21/19 01/21/19 01/21/19 10:16 10:23 10:35 Temperature 97.8 F Pulse Rate 112 Respiratory 16 20 Rate Blood Pressure 145/96 145/96 (mmHg) O2 Sat by Pulse 100 Oximetry 01/21/19 01/21/19 01/21/19 10:45 10:46 11:46 Temperature 98.2 F 97.9 F 98.2 F Pulse Rate 126 110 119 Respiratory 17 18 20 Rate Blood Pressure 145/96 140/88 158/88 (mmHg) O2 Sat by Pulse 98 99 100 Oximetry 01/21/19 01/21/19 01/21/19 12:00 12:40 14:53 Temperature 98.2 F Pulse Rate 119 Respiratory 20 18 18 Rate Blood Pressure 158/88 (mmHg) O2 Sat by Pulse 100 Oximetry Oxygen Devices in Use Now: None Appearance: Awake, alert. no acute distress Eyes: No Scleral Icterus, - - Obese Ears/Nose/Mouth/Throat: NL Teeth, Lips, Gums Neck: NL Appearance and Movements; NL JVP, Trachea Midline Respiratory: Symmetrical Chest Expansion and Respiratory Effort, Clear to Auscultation Cardiovascular: - - irregular, edema Abdominal: NL Sounds; No Tenderness; No Distention, - - Obese Extremities: - - right knee tender, warm and swollen. Left knee previous sugery scar. no effusion no tenderness Neurological: Alert and Oriented x 3 Result Diagrams: 01/20/19 05:43 01/20/19 07:14 Microbiology and Other Data: Microbiology 01/19/19 13:50 Nasal Screen MRSA (PCR) - Final Nasal Mrsa Not Detected Assess/Plan/Problems-Billing Ms Jones is a 68 yo F who has a h/o PAF, type II DM and RA who presented to the ER with c/o dizziness and was found to be in rapid afib/flutter with frequent pauses requiring placement of a temporary pacer wire yesterday. - Patient Problems (1) Afib Current Visit: Yes Status: Acute Code(s): I48.91 - UNSPECIFIED ATRIAL FIBRILLATION SNOMED Code(s): 64057606 Comment: - She had had intermittent pacing due to low HR. Off eliquis in anticipation of pacemaker placement - S/p PPM today 01/21/19 - Resume Eliquis in am as per Cardiology input - On Cefazolin will discharge home on keflex - Continue metoprolol 50 mg bid (2) DM w/o complication type II Current Visit: Yes Status: Chronic Code(s): E11.9 - TYPE 2 DIABETES MELLITUS WITHOUT COMPLICATIONS SNOMED Code(s): 187602980 Comment: - Blood sugars will increase now that I placed her on dexamethasone. - I will add lantus 12 units tonight in anticipation of elevated BG with dexamethasone (for her arthritis) - Metformin remains on hold (3) GERD (gastroesophageal reflux disease) Current Visit: Yes Status: Chronic Code(s): K21.9 - GASTRO-ESOPHAGEAL REFLUX DISEASE WITHOUT ESOPHAGITIS SNOMED Code(s): 310821236 Comment: Stable - continue pantoprazole (4) Rheumatoid arthritis Current Visit: Yes Status: Chronic Code(s): M06.9 - RHEUMATOID ARTHRITIS, UNSPECIFIED SNOMED Code(s): 24725305 Comment: - Methotrexate on hold. - I will place her on dexamethasone for her acute flare up and will monitor BG. Will defer detention managment for her outpatient care - I will send Xray of both knees as she states she started to have the pain because her position while in bed immobolized from her transvenous pacemaker (5) HLD (hyperlipidemia) Current Visit: No Status: Chronic Code(s): E78.5 - HYPERLIPIDEMIA, UNSPECIFIED SNOMED Code(s): 85078692 Comment: Continue statin. (6) DVT prophylaxis Current Visit: Yes Status: Acute Code(s): VJQ1708 - SNOMED Code(s): 061719800 Comment: - Darci starting tomorrow 01/22/19
[2019-01-21] MEDS: ceFAZolin VIAL(*) 1 GM in NS 0.9% 50 ML* 50 ML IVPB SCH (19:30)
[2019-01-21] MEDS ORDERED: Diltiazem IV push/loading dose 5 MG/ML 5 ML vial (25 mg) IV SLOW PU ONE ×3 (19:39→23:57)
[2019-01-21] MEDS: Dexamethasone TAB* 1 MG PO SCH (21:29)
[2019-01-22] MEDS: ceFAZolin VIAL(*) 1 GM in NS 0.9% 50 ML* 50 ML IVPB SCH ×2 (00:13→07:40)
[2019-01-22] MEDS: Diltiazem TAB* 30 MG PO SCH ×4 (02:46→21:52)
[2019-01-22] MEDS ORDERED: Metoprolol Tartrate IV* 1 MG/ML 5 ML VIAL IV PRN (04:24)
[2019-01-22] MEDS ORDERED: Metoprolol Tartrate IV* 1 MG/ML 5 ML VIAL ONE (04:28)
[2019-01-22 06:41] LABS: ABS Lymphocytes 0.4 10^3/ul (1.0-4.8); ABS Monocytes 0.2 10^3/ul (0-0.8); ABS Neutrophils 4.4 10^3/ul (1.5-7.7); Hematocrit 34 % (35-47); Hemoglobin 11.5 g/dL (12.0-16.0); Lymphocyte % 7.9 %; Mean Corpuscular HGB Conc 34 g/dL (31-36); Mean Corpuscular Hemoglobin 33 pg (27-31); Mean Corpuscular Volume 95 fL (80-97); Mean Platelet Volume 9.3 fL (7.4-10.4); Platelet Count 140 10^3/uL (150-450); Red Blood Count 3.53 10^6 /uL (3.70-4.87); Red Cell Distribution Width 15 % (10.5-15)
[2019-01-22 06:58] LABS: BUN/Creatinine Ratio 23.6 (8-20); EGFR African American 76.8 (>60); EGFR Non-African American 63.5 (>60); Phosphorus 3.8 mg/dL (2.5-5.0); Potassium 4.3 mmol/L (3.5-5.0)
[2019-01-22] MEDS: Folic Acid TAB* 1 MG PO SCH (08:49)
[2019-01-22] MEDS: Apixaban* 5 MG TAB PO SCH ×2 (08:49→21:52)
[2019-01-22] MEDS: CMC: Rosuvastatin (NF) 20 MG TAB PO SCH (08:50)
[2019-01-22] MEDS: Pantoprazole TAB * 40 MG TAB PO SCH (08:50)
[2019-01-22] MEDS: Metoprolol Succinate XL TAB* 50 MG PO SCH ×2 (08:50→21:52)
[2019-01-22] MEDS: Dexamethasone TAB* 1 MG PO SCH ×3 (08:51→21:52)
[2019-01-22] MEDS: Hydroxychloroquine TAB* 200 MG PO SCH ×2 (08:51→21:52)
[2019-01-22] MEDS: Insulin LISPRO* 1 UNITS UNIT SUBCUT SCH ×3 (08:51→17:06)
--- NOTE | 2019-01-22 16:28 | PN ---
Subjective Date of Service: 01/22/19 Interval History: Patient seen today feels much better in regard to her knee pain. Able to stand and transfer but not completely resoled. She acknowledged that her dexamethasone has helped tremendously. Past Medical History: Unchanged from Admission Objective Active Medications: Acetaminophen (Tylenol Tab*) 650 mg PO Q4H PRN PRN Reason: FEVER/PAIN Last Admin: 01/21/19 12:51 Dose: 650 mg Al Hydrox/Mg Hydrox/Simethicone (Maalox Plus*) 30 ml PO Q6H PRN PRN Reason: INDIGESTION Albuterol (Ventolin Hfa Inhaler*) 2 puff INH Q4H PRN PRN Reason: SOB/WHEEZING Apixaban (Eliquis*) 5 mg PO BID [facility] Last Admin: 01/22/19 08:49 Dose: 5 mg Dexamethasone (Decadron Tab*) 2 mg PO TID [facility] Last Admin: 01/22/19 13:40 Dose: 2 mg Dextrose (D50w Syringe 50 Ml*) 12.5 gm IV PUSH .FOR FS < 60 - SS PRN PRN Reason: FS < 60 Diltiazem HCl (Cardizem Tab*) 30 mg PO Q6H [facility] Last Admin: 01/22/19 16:00 Dose: 30 mg Folic Acid (Folvite Tab*) 1 mg PO DAILY [facility] Last Admin: 01/22/19 08:49 Dose: 1 mg Hydroxychloroquine Sulfate (Plaquenil Tab*) 200 mg PO BID [facility] Last Admin: 01/22/19 08:51 Dose: 200 mg Insulin Human Lispro (Humalog*) 0 units SUBCUT [facility]; Protocol Last Admin: 01/22/19 12:20 Dose: 6 unit Methotrexate (Methotrexate Tab*) 2.5 mg PO SEE INSTRUCTIONS [facility] Metoprolol Succinate (Toprol Xl Tab*) 50 mg PO BID [facility] Last Admin: 01/22/19 08:50 Dose: 50 mg Metoprolol Tartrate (Lopressor Iv*) 5 mg IV Q5M PRN PRN Reason: TACHYCARDIA Last Admin: 01/22/19 04:33 Dose: 5 mg Morphine Sulfate (Morphine 4 Mg/Ml Vial (1 Ml)) 2 mg IV Q4H PRN PRN Reason: PAIN - MILD Last Admin: 01/21/19 14:53 Dose: 2 mg Ondansetron HCl (Zofran Inj*) 4 mg IV Q4H PRN PRN Reason: NAUSEA/VOMITING Pantoprazole Sodium (Protonix Tab*) 40 mg PO DAILY [facility] Last Admin: 01/22/19 08:50 Dose: 40 mg Rosuvastatin Calcium (Crestor (Nf)) 20 mg PO DAILY [facility] Last Admin: 01/22/19 08:50 Dose: 20 mg Vital Signs - 8 hr 01/22/19 01/22/19 01/22/19 08:30 12:08 15:32 Temperature 97.7 F 98.3 F 97.9 F Pulse Rate 78 77 67 Respiratory 18 20 18 Rate Blood Pressure 127/63 119/60 134/80 (mmHg) O2 Sat by Pulse 98 97 98 Oximetry Oxygen Devices in Use Now: None Appearance: Awake, alert. no acute distress. sitting in chair. Eyes: No Scleral Icterus, PERRLA, - - EOMI Ears/Nose/Mouth/Throat: NL Teeth, Lips, Gums, Mucous Membranes Moist Neck: NL Appearance and Movements; NL JVP, Trachea Midline Respiratory: Symmetrical Chest Expansion and Respiratory Effort, Clear to Auscultation Cardiovascular: NL Sounds; No Murmurs; No JVD, - - Edema, Abdominal: NL Sounds; No Tenderness; No Distention Result Diagrams: 01/22/19 06:07 01/22/19 06:07 Microbiology and Other Data: Microbiology 01/19/19 13:50 Nasal Screen MRSA (PCR) - Final Nasal Mrsa Not Detected Assess/Plan/Problems-Billing Ms Jones is a 68 yo F who has a h/o PAF, type II DM and RA who presented to the ER with c/o dizziness and was found to be in rapid afib/flutter with frequent pauses requiring placement of a temporary pacer wire yesterday. - Patient Problems (1) Afib Current Visit: Yes Status: Acute Code(s): I48.91 - UNSPECIFIED ATRIAL FIBRILLATION SNOMED Code(s): 36620241 Comment: - She had had intermittent pacing due to low HR. Off eliquis in anticipation of pacemaker placement - S/p PPM today 01/21/19 - Resumed Eliquis today 01/22/19 as per Cardiology input - On Cefazolin will discharge home on keflex 250 mg tid for 3 days starting today 01/22/19 - Continue metoprolol 50 mg bid. To follow up with cardiology as outlined in their note on 01/21/19 (2) Knee pain, bilateral Current Visit: Yes Status: Acute Code(s): M25.561 - PAIN IN RIGHT KNEE; M25.562 - PAIN IN LEFT KNEE SNOMED Code(s): 10439385 Comment: - Secondary to her RA. - responding well to her dexamethasone - PT ordered. She may benefit from rehab given her severe pain and difficulty ambulating with her acute pain - If she does not respond to her dexamethasone well enoiugh she may not be able to go home (3) Rheumatoid arthritis Current Visit: Yes Status: Chronic Code(s): M06.9 - RHEUMATOID ARTHRITIS, UNSPECIFIED SNOMED Code(s): 48610404 Comment: - Methotrexate on hold. Resume to start on thursday as per home regimen - I did place her on dexamethasone starting 01/21/19 for her acute flare up and will monitor BG. will need to taper over next 5-7 days - Xray of both knees consistent with osteoarthritis. responding well to short term dexamethasone (4) DM w/o complication type II Current Visit: Yes Status: Chronic Code(s): E11.9 - TYPE 2 DIABETES MELLITUS WITHOUT COMPLICATIONS SNOMED Code(s): 097654187 Comment: - Blood sugars will increase now that I placed her on dexamethasone. - I add lantus 12 units in anticipation of elevated BG with dexamethasone (for her arthritis) - Metformin remains on hold (5) GERD (gastroesophageal reflux disease) Current Visit: Yes Status: Chronic Code(s): K21.9 - GASTRO-ESOPHAGEAL REFLUX DISEASE WITHOUT ESOPHAGITIS SNOMED Code(s): 719976859 Comment: Stable - continue pantoprazole (6) HLD (hyperlipidemia) Current Visit: No Status: Chronic Code(s): E78.5 - HYPERLIPIDEMIA, UNSPECIFIED SNOMED Code(s): 37292325 Comment: Continue statin. (7) DVT prophylaxis Current Visit: Yes Status: Acute Code(s): RKP4305 - SNOMED Code(s): 029374285 Comment: - Eliquis starting tomorrow 01/22/19
[2019-01-22] MEDS: Cephalexin CAP* 250 MG PO SCH (21:52)
[2019-01-23] MEDS: Diltiazem TAB* 30 MG PO SCH ×4 (03:56→20:17)
[2019-01-23] MEDS: Pantoprazole TAB * 40 MG TAB PO SCH (09:09)
[2019-01-23] MEDS: Folic Acid TAB* 1 MG PO SCH (09:09)
[2019-01-23] MEDS: Apixaban* 5 MG TAB PO SCH ×2 (09:09→20:18)
[2019-01-23] MEDS: Metoprolol Succinate XL TAB* 50 MG PO SCH ×2 (09:09→20:17)
[2019-01-23] MEDS: Insulin LISPRO* 1 UNITS UNIT SUBCUT SCH ×3 (09:09→17:32)
[2019-01-23] MEDS: Hydroxychloroquine TAB* 200 MG PO SCH ×2 (09:10→20:17)
[2019-01-23] MEDS: Dexamethasone TAB* 1 MG PO SCH ×3 (09:10→20:18)
[2019-01-23] MEDS: CMC: Rosuvastatin (NF) 20 MG TAB PO SCH (09:11)
[2019-01-23] MEDS: Cephalexin CAP* 250 MG PO SCH ×3 (09:28→20:17)
--- NOTE | 2019-01-23 16:21 | PN ---
Subjective Date of Service: 01/23/19 Interval History: Pt is slowly feeling better. Her R knee is still painful and it's difficult for pt to ambulate. Telem shows fib/flutter with HR in 80's Past Medical History: Unchanged from Admission Objective Active Medications: Acetaminophen (Tylenol Tab*) 650 mg PO Q4H PRN PRN Reason: FEVER/PAIN Last Admin: 01/21/19 12:51 Dose: 650 mg Al Hydrox/Mg Hydrox/Simethicone (Maalox Plus*) 30 ml PO Q6H PRN PRN Reason: INDIGESTION Albuterol (Ventolin Hfa Inhaler*) 2 puff INH Q4H PRN PRN Reason: SOB/WHEEZING Apixaban (Eliquis*) 5 mg PO BID [facility] Last Admin: 01/23/19 09:09 Dose: 5 mg Cephalexin HCl (Keflex Cap*) 250 mg PO TID [facility] Last Admin: 01/23/19 15:31 Dose: 250 mg Dexamethasone (Decadron Tab*) 2 mg PO TID [facility] Last Admin: 01/23/19 15:31 Dose: 2 mg Dextrose (D50w Syringe 50 Ml*) 12.5 gm IV PUSH .FOR FS < 60 - SS PRN PRN Reason: FS < 60 Diltiazem HCl (Cardizem Tab*) 30 mg PO Q6H [facility] Stop: 01/23/19 23:59 Last Admin: 01/23/19 15:31 Dose: 30 mg Diltiazem HCl (Cardizem Cd Cap*) 240 mg PO DAILY [facility] Folic Acid (Folvite Tab*) 1 mg PO DAILY [facility] Last Admin: 01/23/19 09:09 Dose: 1 mg Hydroxychloroquine Sulfate (Plaquenil Tab*) 200 mg PO BID [facility] Last Admin: 01/23/19 09:10 Dose: 200 mg Insulin Human Lispro (Humalog*) 0 units SUBCUT [facility]; Protocol Last Admin: 01/23/19 12:47 Dose: 3 unit Methotrexate (Methotrexate Tab*) 7.5 mg PO Mo@0900 [facility] Metoprolol Succinate (Toprol Xl Tab*) 50 mg PO BID [facility] Last Admin: 01/23/19 09:09 Dose: 50 mg Metoprolol Tartrate (Lopressor Iv*) 5 mg IV Q5M PRN PRN Reason: TACHYCARDIA Last Admin: 01/22/19 04:33 Dose: 5 mg Morphine Sulfate (Morphine 4 Mg/Ml Vial (1 Ml)) 2 mg IV Q4H PRN PRN Reason: PAIN - MILD Last Admin: 01/21/19 14:53 Dose: 2 mg Ondansetron HCl (Zofran Inj*) 4 mg IV Q4H PRN PRN Reason: NAUSEA/VOMITING Pantoprazole Sodium (Protonix Tab*) 40 mg PO DAILY [facility] Last Admin: 01/23/19 09:09 Dose: 40 mg Rosuvastatin Calcium (Crestor (Nf)) 20 mg PO DAILY [facility] Last Admin: 01/23/19 09:11 Dose: 20 mg Vital Signs - 8 hr 01/23/19 01/23/19 11:39 15:29 Temperature 97.2 F 97.5 F Pulse Rate 64 59 Respiratory 18 18 Rate Blood Pressure 120/67 148/80 (mmHg) O2 Sat by Pulse 100 100 Oximetry Oxygen Devices in Use Now: None Appearance: 68 yo F in nAD, aAOx3 Eyes: No Scleral Icterus, PERRLA Ears/Nose/Mouth/Throat: NL Teeth, Lips, Gums, Mucous Membranes Moist Neck: NL Appearance and Movements; NL JVP, Trachea Midline Respiratory: Symmetrical Chest Expansion and Respiratory Effort, Clear to Auscultation Cardiovascular: - - irregular Abdominal: NL Sounds; No Tenderness; No Distention, No Hepatosplenomegaly Lymphatic: No Cervical Adenopathy Extremities: No Clubbing, Cyanosis, - - trace ankle edema b/l. R knee with limited ROM at extension due to pain, mild knee effusion noted Skin: No Nodules or Sclerosis Neurological: Alert and Oriented x 3, NL Muscle Strength and Tone Result Diagrams: 01/22/19 06:07 01/22/19 06:07 Microbiology and Other Data: Microbiology 01/19/19 13:50 Nasal Screen MRSA (PCR) - Final Nasal Mrsa Not Detected Assess/Plan/Problems-Billing Ms Jones is a 68 yo F who has a h/o PAF, type II DM and RA who presented to the ER with c/o dizziness and was found to be in rapid afib/flutter with frequent pauses requiring placement of a temporary pacer wire yesterday. - Patient Problems (1) Afib Comment: - S/p PPM 01/21/19 - Resumed Eliquis 01/22/19 as per Cardiology - On Cefazolin will discharge home on keflex 250 mg tid for 3 days starting 01/22 -Cardizem immediate release will be replaced with Cardizem CD in aM -cont lopressor BID (2) Knee pain, bilateral Comment: - Secondary to her RA. - responding well to dexamethasone - PT ordered. Slowly improving, but will require 1-2 days of acute stay (3) DM w/o complication type II Comment: cont lantus, restarting metformin (4) Rheumatoid arthritis Comment: - Methotrexate on hold. Resume to start on thursday as per home regimen - Xray of both knees consistent with osteoarthritis. responding well to short term dexamethasone (5) DVT prophylaxis Comment: - Eliquis Status and Disposition: inpatient
[2019-01-24 06:41] LABS: BUN/Creatinine Ratio 34.8 (8-20); Calcium 8.9 mg/dL (8.6-10.3); EGFR African American 76.8 (>60); EGFR Non-African American 63.5 (>60); Magnesium 2.2 mg/dL (1.9-2.7); Potassium 4.4 mmol/L (3.5-5.0)
[2019-01-24] MEDS ORDERED: Methotrexate TAB* 2.5 MG PO SCH (09:00)
[2019-01-24] MEDS: Cephalexin CAP* 250 MG PO SCH ×3 (09:11→20:37)
[2019-01-24] MEDS: Apixaban* 5 MG TAB PO SCH ×2 (09:11→20:36)
[2019-01-24] MEDS: Diltiazem CD CAP* 240 MG PO SCH (09:11)
[2019-01-24] MEDS: Metoprolol Succinate XL TAB* 50 MG PO SCH ×2 (09:11→20:37)
[2019-01-24] MEDS: CMC: Rosuvastatin (NF) 20 MG TAB PO SCH (09:11)
[2019-01-24] MEDS: Folic Acid TAB* 1 MG PO SCH (09:11)
[2019-01-24] MEDS: Dexamethasone TAB* 1 MG PO SCH ×2 (09:11→20:36)
[2019-01-24] MEDS: Hydroxychloroquine TAB* 200 MG PO SCH ×2 (09:12→20:37)
[2019-01-24] MEDS: Insulin LISPRO* 1 UNITS UNIT SUBCUT SCH ×3 (09:12→17:03)
[2019-01-24] MEDS: Pantoprazole TAB * 40 MG TAB PO SCH (09:12)
--- NOTE | 2019-01-24 15:14 | PN ---
Subjective Date of Service: 01/24/19 Interval History: Pt still feels too unsteady on her legs to go home due to flare or arthritis in b/l knees, although it's slowly improving Past Medical History: Unchanged from Admission Objective Active Medications: Acetaminophen (Tylenol Tab*) 650 mg PO Q4H PRN PRN Reason: FEVER/PAIN Last Admin: 01/21/19 12:51 Dose: 650 mg Al Hydrox/Mg Hydrox/Simethicone (Maalox Plus*) 30 ml PO Q6H PRN PRN Reason: INDIGESTION Albuterol (Ventolin Hfa Inhaler*) 2 puff INH Q4H PRN PRN Reason: SOB/WHEEZING Apixaban (Eliquis*) 5 mg PO BID [facility] Last Admin: 01/24/19 09:11 Dose: 5 mg Cephalexin HCl (Keflex Cap*) 250 mg PO TID [facility] Last Admin: 01/24/19 14:57 Dose: 250 mg Dexamethasone (Decadron Tab*) 2 mg PO BID [facility] Dextrose (D50w Syringe 50 Ml*) 12.5 gm IV PUSH .FOR FS < 60 - SS PRN PRN Reason: FS < 60 Diltiazem HCl (Cardizem Cd Cap*) 240 mg PO DAILY [facility] Last Admin: 01/24/19 09:11 Dose: 240 mg Folic Acid (Folvite Tab*) 1 mg PO DAILY [facility] Last Admin: 01/24/19 09:11 Dose: 1 mg Hydroxychloroquine Sulfate (Plaquenil Tab*) 200 mg PO BID [facility] Last Admin: 01/24/19 09:12 Dose: 200 mg Insulin Human Lispro (Humalog*) 0 units SUBCUT AC [facility]; Protocol Last Admin: 01/24/19 12:07 Dose: 9 unit Methotrexate (Methotrexate Tab*) 7.5 mg PO Mo@0900 [facility] Last Admin: 01/24/19 09:44 Dose: 7.5 mg Metoprolol Succinate (Toprol Xl Tab*) 50 mg PO BID [facility] Last Admin: 01/24/19 09:11 Dose: 50 mg Metoprolol Tartrate (Lopressor Iv*) 5 mg IV Q5M PRN PRN Reason: TACHYCARDIA Last Admin: 01/22/19 04:33 Dose: 5 mg Morphine Sulfate (Morphine 4 Mg/Ml Vial (1 Ml)) 2 mg IV Q4H PRN PRN Reason: PAIN - MILD Last Admin: 01/21/19 14:53 Dose: 2 mg Ondansetron HCl (Zofran Inj*) 4 mg IV Q4H PRN PRN Reason: NAUSEA/VOMITING Pantoprazole Sodium (Protonix Tab*) 40 mg PO DAILY [facility] Last Admin: 01/24/19 09:12 Dose: 40 mg Rosuvastatin Calcium (Crestor (Nf)) 20 mg PO DAILY [facility] Last Admin: 01/24/19 09:11 Dose: 20 mg Vital Signs - 8 hr 01/24/19 01/24/19 01/24/19 07:58 08:00 11:00 Temperature 98.0 F Pulse Rate 75 Respiratory 20 20 Rate Blood Pressure 133/68 (mmHg) O2 Sat by Pulse 100 97 Oximetry 01/24/19 11:41 Temperature 97.5 F Pulse Rate 89 Respiratory 18 Rate Blood Pressure 142/71 (mmHg) O2 Sat by Pulse 97 Oximetry Oxygen Devices in Use Now: None Appearance: 68 yo F in nAD, aAOx3 Eyes: No Scleral Icterus, PERRLA Ears/Nose/Mouth/Throat: NL Teeth, Lips, Gums, Mucous Membranes Moist Neck: NL Appearance and Movements; NL JVP, Trachea Midline Respiratory: Symmetrical Chest Expansion and Respiratory Effort, Clear to Auscultation Cardiovascular: NL Sounds; No Murmurs; No JVD, RRR Abdominal: NL Sounds; No Tenderness; No Distention, No Hepatosplenomegaly Lymphatic: No Cervical Adenopathy Extremities: No Clubbing, Cyanosis, - - trace pedal edema b/l. Limit of ROM in r knee due to pain-able to extend at 120 degrees Skin: No Nodules or Sclerosis Neurological: Alert and Oriented x 3, NL Muscle Strength and Tone Result Diagrams: 01/22/19 06:07 01/24/19 06:11 Microbiology and Other Data: Microbiology 01/19/19 13:50 Nasal Screen MRSA (PCR) - Final Nasal Mrsa Not Detected Assess/Plan/Problems-Billing Ms Jones is a 68 yo F who has a h/o PAF, type II DM and RA who presented to the ER with c/o dizziness and was found to be in rapid afib/flutter with frequent pauses requiring placement of a temporary pacer wire yesterday. - Patient Problems (1) Afib Comment: - S/p PPM 01/21/19 - Resumed Eliquis 01/22/19 as per Cardiology - On Cefazolin will discharge home on keflex 250 mg tid for 3 days starting 01/22 -Cardizem immediate release replaced with Cardizem CD today -cont lopressor BID -today in paced sinus rhythm (2) Knee pain, bilateral Comment: - Secondary to her RA. - responding well to dexamethasone (dose tapered down from TID to BID) - PT ordered. Slowly improving, but will require 1-2 days of acute stay (3) DM w/o complication type II Comment: cont ISS, restarted metformin 01/24 (4) Rheumatoid arthritis Comment: - Methotrexate on hold. Resume to start on thursday as per home regimen - Xray of both knees consistent with osteoarthritis. responding well to short term dexamethasone (5) DVT prophylaxis Comment: - Eliquis Status and Disposition: inpatient, planned d/c home likely in 1-2 days
[2019-01-24] MEDS: metFORMIN* 500 MG TAB PO SCH (17:03)
[2019-01-25 08:19] VITALS: BP 142/80
[2019-01-25] MEDS: Metoprolol Succinate XL TAB* 50 MG PO SCH (08:28)
[2019-01-25] MEDS: Insulin LISPRO* 1 UNITS UNIT SUBCUT SCH ×2 (08:29→11:57)
[2019-01-25] MEDS: Pantoprazole TAB * 40 MG TAB PO SCH (08:29)
[2019-01-25] MEDS: Cephalexin CAP* 250 MG PO SCH ×2 (08:29→13:12)
[2019-01-25] MEDS: Diltiazem CD CAP* 240 MG PO SCH (08:29)
[2019-01-25] MEDS: Hydroxychloroquine TAB* 200 MG PO SCH (08:29)
[2019-01-25] MEDS: Folic Acid TAB* 1 MG PO SCH (08:29)
[2019-01-25] MEDS: Dexamethasone TAB* 1 MG PO SCH (08:29)
[2019-01-25] MEDS: Apixaban* 5 MG TAB PO SCH (08:29)
[2019-01-25] MEDS: metFORMIN* 500 MG TAB PO SCH (08:29)
[2019-01-25] MEDS: CMC: Rosuvastatin (NF) 20 MG TAB PO SCH (08:29)
--- NOTE | 2019-01-26 01:43 | DS ---
CC: Natalie Harris MD; Dr. Avila; Dr. Vaughan * DISCHARGE SUMMARY: DATE OF ADMISSION: 01/19/19 DATE OF DISCHARGE: 01/25/19 PRIMARY CARE PHYSICIAN: Natalie Harris MD FIELD INSURANCE SALES MANAGER: Dr. Avila PRIMARY DIAGNOSES: Atrial fibrillation/flutter with frequent pauses, sick sinus syndrome. SECONDARY DIAGNOSES: 1. Rheumatoid arthritis. 2. Diabetes. 3. Osteoarthritis. 4. Obstructive sleep apnea. CONSULTS: Cardiology, Dr. Vaughan. PROCEDURES: Temporary pacemaker placed on 01/19/19. Cardiac catheterization on 01/19/19 for placement of temporary pacing wire. Dual chamber pacemaker implantation on 01/21/19. DISCHARGE MEDICATIONS: 1. Diltiazem CD 240 mg p.o. daily. 2. Dexamethasone 2 mg twice a day for 2 days, then 2 mg daily for 2 days. 3. Apixaban 5 mg twice a day. 4. Metformin 500 mg daily. 5. Hydroxychloroquine 200 mg twice a day. 6. Methotrexate as per glass vial bending conveyor feeder. 7. Dulaglutide 1 dose subcutaneously weekly. 8. Torsemide 20 mg daily. 9. Rosuvastatin 20 mg daily. 10. Omeprazole 20 mg daily. 11. Metoprolol tartrate 50 mg twice a day. 12. Folic acid 1 tab daily. 13. Cetirizine 10 mg daily. 14. Multivitamin daily. 15. Albuterol 2 puffs every 4 hours as needed for shortness of breath. HISTORY OF PRESENT ILLNESS: A 68-year-old woman with paroxysmal atrial fibrillation, on Eliquis; diabetes; osteoporosis; rheumatoid arthritis, who presented to the emergency room with palpitations and elevated blood pressure. She states she went to bed late last night day before presentation and after about 15 minutes of resting in bed, she noted palpitations with heart racing. She states she does get these episodes about once per week and normally she takes a deep breath and relaxes, the palpitations resolve on their own. However, these symptoms persisted. She got up to check her blood pressure, it was very high and she was also having a posterior headache, so she thought she is to come to the emergency room for further evaluation because her blood pressure had never been that high before. She had no fever, URI symptoms. She had an unintentional 4-pound weight loss, normal lower extremity swelling. She had one sharp episode of left-sided chest pain and a few twinges occasionally without shortness of breath. No diaphoresis. No nausea. She was supposed to followup in a week with her movie actor, Dr. Avila to have an echocardiogram and she has not had a stress test in a while. HOSPITAL COURSE; In the emergency room, she reported dizziness and was noted to have tachycardia , so she was given Lopressor 5 mg and digoxin. The patient declined cardioversion in the ER given history of failed cardioversion. She was given Cardizem 20 and developed frequent pauses with 3 to 6 seconds with associated dizziness, so she is referred to the hospitalist service for further evaluation. She was subsequently evaluated by Cardiology, who recommended temporary pacer pads while pending dual chamber pacemaker implantation, which she underwent on 01/19/19. She underwent a permanent pacemaker [address] Vaughan of Cardiology. Her Eliquis was resumed the next day and she was given Keflex 250 t.i.d. for 3 days after procedure. Cardiology team here communicated with her primary movie actor, Dr. Avila with the plan. When the patient was getting ready for discharge after permanent pacemaker placement , she had been complaining of severe bilateral knee pain, which she thought was a flare up of her rheumatoid arthritis and she was started on dexamethasone taper and was evaluated by physical therapy. Her knee pain improved over the course of a few days and she was able to ambulate with the assistance of a walker until she felt ready to return home where she lives independently. Her heart medicines were optimized including optimization of her rate control agents and she was noted to be in paced sinus rhythm on day of discharge. She further denied chest pain, shortness of breath, orthopnea, PND, or worsening lower extremity edema. She thinks the swelling over her knees has improved since starting on the dexamethasone. A 10-point review of systems was performed and otherwise negative. PHYSICAL EXAMINATION: The patient is afebrile, heart rate 60, blood pressure 142/80, respiratory rate 12, oxygen saturation 98% on room air. She is a well- appearing woman, friendly, conversant and interactive. Appears younger than her stated age. Neck: No JVD. HEENT: OP clear. Moist mucous membranes. Respiratory: Clear to auscultation bilaterally. Cardiovascular: Regular rate and rhythm. No murmurs, gallops, or rubs. Abdomen: Soft, nontender, nondistended. Extremities: Well-healed scar over left knee, unable to appreciate edema or effusions of her knee. Trace pedal edema bilaterally. Full range of motion present in both knees. PERTINENT STUDIES AND LABS: TSH 3.6, troponins negative. BNP 624. Hemoglobin A1c is 7.3 creatinine 0.89 (on presentation was 1.44) hemoglobin 11 with MCV 97. Chest x-ray with temporary pacer lead in right ventricle with vascular congestion and cardiomegaly. Transthoracic echocardiogram 01/19/19, LV systolic function [id number] reduced with EF 40% to 45%, decreased from prior study with moderate diffuse hypokinesis, mitral valve with moderate regurg, tricuspid valve with mild regurg. Knee x-ray 01/21/19 with anatomic alignment of the left knee prosthesis in 2 views and degenerative change in her right with a small suprapatellar joint effusion. DISCHARGE PLAN: The patient is to follow up with our cardiology team, specifically the procedural movie actor, Dr. Vaughan and then she will also follow up with her outpatient movie actor, Dr. Avila, who has been notified of this hospitalization and our procedures and plan here. She will also follow up with her PCP, Dr. Harris. She is to resume a healthy diet and has been educated on carb control for purposes of weight loss and A1c control, and she is to resume activity as tolerated and was given education on how to modify activity for knee pain by our physical therapy team. Her medication changes include addition of a steroid taper due to knee pain while admitted and also diltiazem 240 mg daily as stated above. Otherwise, her medications were not changed. The patient was extensively education on return precautions, which include but are not limited to chest pain, dizziness, or syncope. DISPOSITION: To home. CONDITION: Good. TIME SPENT: Approximately 60 minutes was spent on the discharge of this patient ; more than half of which was spent with care, coordination and at bedside for interview and exam. [id number]/[facility] #: [id number] RAJAN
== END 2019-01-25 14:24 | disposition home health service (06) | DRG 243 ==
LOC: ED 02:06 → MEDTELE 05:51 → ICU 13:25 → OBSVTOIN 13:25 → MEDTELE 01-21 09:08
PROVIDERS: ADMIT Pediatrics; ATTEND Internal Medicine
PROC: 5A1223Z Performance of Cardiac Pacing, Continuous (ICD-10-PCS; 2019-01-19)
PROC: 02HK3JZ Insertion of Pacemaker Lead into Right Ventricle, Percutaneous Approach (ICD-10-PCS; 2019-01-21)
PROC: 02H63JZ Insertion of Pacemaker Lead into Right Atrium, Percutaneous Approach (ICD-10-PCS; 2019-01-21)
PROC: 0JH606Z Insertion of Pacemaker, Dual Chamber into Chest Subcutaneous Tissue and Fascia, Open Approach (ICD-10-PCS; principal; 2019-01-21 07:00)
DX: I48.0 Paroxysmal atrial fibrillation (principal); Z68.42 Body mass index [BMI] 45.0-49.9, adult; E11.9 Type 2 diabetes mellitus without complications; E66.01 Morbid (severe) obesity due to excess calories; I48.92 Unspecified atrial flutter; G47.33 Obstructive sleep apnea (adult) (pediatric); I49.5 Sick sinus syndrome; J45.909 Unspecified asthma, uncomplicated; K21.9 Gastro-esophageal reflux disease without esophagitis; M06.862 Other specified rheumatoid arthritis, left knee; M06.861 Other specified rheumatoid arthritis, right knee; M81.0 Age-related osteoporosis without current pathological fracture; I08.1 Rheumatic disorders of both mitral and tricuspid valves; N39.3 Stress incontinence (female) (male); M17.0 Bilateral primary osteoarthritis of knee; M25.561 Pain in right knee; M25.562 Pain in left knee; Z87.09 Personal history of other diseases of the respiratory system; Z87.898 Personal history of other specified conditions; Z79.01 Long term (current) use of anticoagulants; Z79.84 Long term (current) use of oral hypoglycemic drugs; Z79.51 Long term (current) use of inhaled steroids; Z79.899 Other long term (current) drug therapy; Z88.8 Allergy status to other drugs, medicaments and biological substances; Z83.3 Family history of diabetes mellitus; Z82.49 Family history of ischemic heart disease and other diseases of the circulatory system; Z80.51 Family history of malignant neoplasm of kidney
CPT/HCPCS: 33208; 33210; 36415; 71045; 71046; 76937; 80048; 80053; 80061; 82947; 83036; 83735; 83880; 84100; 84443; 84484; 85025; 85610; 85730; 87641; 93005; 93306; 99156; 99157; 99284; A9270-GY; C1785; C1887; C1892; C1898; G8978-GP-CL; G8979-GP-CI; G8980-GP-CI; J0610; J0690; J1100; J1160; J1644; J1650; J2250; J2270; J3010; J3475; J3490; J8610

== ENCOUNTER 2019-03-13 15:55 | Emergency (ER) | payer MEDICARE ==
--- OUTSIDE RECORDS SUMMARY | 2019-03-13 16:01 | XMS REPORT | Continuity of Care Document ---
:1950 External Reference #:[id number] Author Name Cole Hernandez M.D. Address [address] [place] [address] Care Team Providers Name Role Phone Natalie Harris M.D. Primary Care Physician Unavailable Payers Date Identification Numbers Payment Provider Subscriber Policy Number: [id number] [employer] Bri Jones PayID: [id number] [id number] [place] [address] Problems Active Problems Provider Date Seasonal allergy Onset: Asthma Onset: Gastroesophageal reflux disease Onset: Genuine stress incontinence Onset: Type 2 diabetes mellitus Onset: Pure hypercholesterolemia Onset: Atrial arrhythmia Onset: Rheumatoid arthritis Onset: Depressive disorder Onset: Atrial fibrillation Onset: Diverticulitis Onset: Open angle with borderline findings Cole Hernandez M.D. Onset: 05/31/2015 Taking medication Cole Hernandez M.D. Onset: 05/31/2015 Nuclear senile cataract Cole Hernandez M.D. Onset: 05/31/2015 FH: Glaucoma Cole Hernandez M.D. Onset: 11/30/2015 Internal hordeolum Kelly Barcenas O.D. Onset: 03/16/2018 Chalazion Kate Albright O.D. Onset: 03/24/2018 Tear film insufficiency Kate Albright O.D. Onset: 03/24/2018 Combined form of senile cataract Cole Hernandez M.D. 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 500mg Tablets Folic Acid Halle Crowder NP 1mg Tablets Metoprolol Tartrate Natalie Harris M.D. 50mg Tablets Omeprazole Unknown 20mg Capsules DR Hatch Allergy as needed Unknown 10mg Capsules Methotrexate 5 tablets every Unknown 2.5mg Tablets Thursday Crestor Unknown 20mg Tablets Torsemide Unknown 20mg Tablets Triamcinolone Acetonide Unknown 55mcg/Act Aerosol Eliquis twice daily Unknown 5mg Tablets Trulicity Unknown 1.5mg/0.5ML Solution Pen-Inject Ventolin HFA Unknown 108(90Base) mcg/Act Aerosol Visine Tears 1 drop both eyes Unknown 0.2-0.2-1% as needed Solution Centrum Silver Adult 1 tablet each am Unknown 50+ Adult 50 Tablets History Medications Erythromycin apply thin strip 1Tubes H00.025 Kelly Crouch 03/16/2018 - 5mg/GM Ointment inside left Marek Barecnas 02/13/2019 lower eyelid twice a day Krill Oil Cole Fishman 05/30/2015 - 1000mg Capsules Jayme Hernandez 02/11/2018 [place] 3 Cole Fishman 05/30/2015 - 1000mg Capsules Jayme Hernandez 05/30/2015 Opcon-A as need for Cole Fishman 11/26/2014 - 0.027-0.315% Solution allergies Jayme Hernandez 02/11/2018 Soluble Fiber Therapy Unknown - Powder 02/13/2019 Multiple Vitamins Unknown - Tablets 02/13/2019 Visine Maximum Redness 1 drop both eyes Unknown - Relief every week 02/11/2018 0.05-0.2-0.36-1% Solution Prednisone Unknown - 10mg Tablets 01/21/2017 Benzonatate Unknown - 200mg Capsules 02/11/2018 Eliquis Unknown - 5mg Tablets 02/11/2018 Metamucil Unknown - 28.3% Powder 02/11/2018 Warfarin Sodium Unknown - 5mg Tablets 02/11/2018 Triamcinolone Acetonide Unknown - 05/30/2015 55mcg/Act Aerosol Glucosamine Sulfate Unknown - 500mg 02/11/2018 Capsules Furosemide Unknown - 20mg Tablets 11/29/2015 Pyridoxine HCL Unknown - 100mg Tablets 02/11/2018 Voltaren Unknown - 1% Gel 02/11/2018 Calcium Unknown - Carb-Cholecalciferol 02/11/2018 [id number] Tablets Ventolin HFA Unknown - 108(90Base) 02/11/2018 mcg/Act Aerosol Lactaid Unknown - 4500Unit Chewtabs 02/11/2018 Beano Unknown - Liquid 02/11/2018 Nasacort Allergy 24HR as needed Unknown - 55mcg/Act 02/11/2018 Aerosol Multi Vitamin Daily Unknown - Tablets 02/11/2018 Vitamin B12 Unknown - 100mcg Tablets 02/11/2018 Vitamin B6 Unknown - 100mg Tablets 02/11/2018 Nexium Unknown - 40mg Capsules DR 02/11/2018 Piroxicam Unknown - 20mg Capsules 05/30/2015 Vitamin C Unknown - 500mg Capsules 02/11/2018 Proair HFA Unknown - 108(90Base) mcg/Act 05/30/2015 Aerosol Hydroxychloroquine twice a day Vel, - Sulfate Zsofia [employer] 02/13/2019 200mg Tablets Fluoxetine HCL Crepet, Natalie - 20mg Capsules M.D. 02/11/2018 Verapamil HCL ER Crepet, Natalie - 180mg Tablets M.D. 02/11/2018 ER Procedures Date Code Description Status 02/12/2018 90816 Scanning Computerized Opthalmic Diagnostic Posterior Seg Completed Retina 02/12/2018 84159 Visual Field Exam Extended Completed 02/12/2018 07289 Determination Of Refractive State Completed 02/12/2018 37153 Est Patient Comprehensive Exam Completed 01/26/2017 03884 Scanning Computerized Opthalmic Diagnostic Posterior Seg Completed Retina 01/26/2017 36811 Visual Field Exam Extended Completed 01/26/2017 77705 Est Patient Comprehensive Exam Completed 11/30/2015 12752 Est Patient Comprehensive Exam Completed 11/30/2015 67831 Scanning Computerized Opthalmic Diagnostic Posterior Seg Completed Retina 05/31/2015 96266 Visual Field Exam Extended Completed 05/31/2015 96606 Est Patient Intermediate Exam Completed 11/27/2014 76773 Scanning Computerized Ophthalmic Diagnostic Imag Posterior Completed Seg On 11/27/2014 14775 Determination Of Refractive State Completed 11/27/2014 42070 Est Patient Comprehensive Exam Completed 11/27/2014 00479 Pachymetry Completed 02/10/2013 85593 Determination Of Refractive State Completed 02/10/2013 47329 New Patient Comprehensive Exam Completed Encounters Type Date Location Provider Dx Diagnosis Office Visit 03/24/2018 Kate Moon H00.15 Chalazion left 3:00p , yolanda Albright O.D. lower eyelid Office Visit 03/16/2018 Kelly Moon, H00.025 Hordeolum 2:45p yolanda BYNUM O.D. internum left lower eyelid Plan of Treatment 02/14/2019 - Cole Hernandez M.D.Z79.899 [facility] (current) drug therapyComments:Smoking can increase the risk of developing or worsening any eye related disease, as well as affect your overall health. If you are a smoker , we strongly recommend that you quit.If you are not a smoker, we strongly recommend that you do not start. Some of the medications you are on have the potential to cause damage to your retinas. Depending on the length of time that you have been taking the medication, Dr. Hernandez may monitor you annually or bi-annually. Dr. Hernandez may also order a Visual Field test or an Optical Coherence Tomography test to monitor your retinas. Dr. Hernandez has sent a report toyour primary care doctor, letting them know the current status of your retinas.M06.9 Rheumatoid arthritis, [id number] Type 2 diabetes mellitus without complicationsComments:You have diabetes. I do not detect any changes in both of your retinas from diabetes at this time. Proper control of your diabetes is important for the health of your eyes. Changes in your eyes from diabetes can happen without symptoms, so it is important that you have your eyes examined. Dr. Hernandez has sent a report to your primary care doctor, letting them know there is no damage from the Diabetes in your eyes.Z83.511 Family history of glaucomaComments:Having a family history of glaucoma is a risk factor for the possibility of you developing glaucoma.However, having a family history does not mean you show any signs of glaucoma now, or will develop glaucoma in the future. It is important that you have a dilated eye exam annually, because even thoughglaucoma is a treatable disease, it does not present itself with any signs or symptoms.H25.813 Combined forms of age-related cataract, bilateralComments:You have been diagnosed with cataracts. If you are happy with your vision as it is now, then we willsee you at your next scheduled appointment. If you feel like your vision is getting worse before your scheduled appointment, please call [facility] at [phone].Follow up:6 Month Follow Up Diagnostic Refraction You can expect to have your eyes dilated at your next visit. If Dr. Hernandez orders any additional testing, it may require extra time. We recommend that you bring sunglasses, as dilation drops often make you light sensitive until they wear off. We always recommendyou bring someone to drive you home if you are uncomfortable driving with your eyes dilated. If you have any questions before your next visit, feel free to call our office at .
--- OUTSIDE RECORDS SUMMARY | 2019-03-13 16:02 | XMS REPORT | Continuity of Care Document ---
:1950 External Reference #:[id number] Author Name Bethel Meier Care Team Providers Name Role Phone Rowan Harris MD Primary Care Physician Unavailable Payers Date Identification Numbers Payment Provider Subscriber Effective: 2017 Policy Number: [id number] [employer] Bri Jones PayID: [id number] [address] [place] [address] Expires: 2017 Policy Number: [id number] [employer] Bri Jones PayID: [id number] [address] [place] [address] Problems Active Problems Provider Date Rheumatoid arthritis Efrem Pyle M.D. Onset: 05/06/2012 Medications Wax Pumper (Current) Use Efrem Pyle M.D. Onset: 05/06/2012 Encounter Lumbosacral spondylosis without Efrem Pyle M.D. Onset: 05/06/2012 myelopathy Spinal stenosis of lumbar region Efrem Pyle M.D. Onset: 07/15/2012 Osteoarthritis of knee Efrem Pyle M.D. Onset: 07/15/2012 Blood chemistry abnormal Efrem Pyle M.D. Onset: 07/14/2014 Bursitis Efrem Pyle M.D. Onset: 07/14/2014 Taking medication CELINE Ortega Onset: 08/22/2014 Sleep disorder Katelyn Fajardo MD Onset: 12/13/2014 Morbid obesity Katelyn Fajardo MD Onset: 12/13/2014 Palpitations Katelyn Fajardo MD Onset: 12/13/2014 Obstructive sleep apnea of adult Sherry Lawrence DNP, RN, Onset: 03/13/2015 [facility] Family History Date Family Member(s) Observation Comments General PGM Diabetes/stroke;MGM glaucoma/stroke;MGF at young age Father Diabetes Type II Father Kidney Cancer Father of heart attack Mother connective tissue disease Mother heart attack at age 47 Siblings 6 Siblings all w/diabetes;youngest sister breast cancer,in remission Siblings another brother w/glaucoma Social History Type Date Description Comments Sex Unknown Lives With Occupation Retired Tobacco Use Start: Unknown Never Smoked Cigarettes Smoking Status Reviewed: 02/14/19 Never Smoked Cigarettes ETOH Use Denies alcohol use Tobacco Use Start: Unknown Patient has never smoked Recreational Drug Use Denies Drug Use Exercise Type/Frequency Exercises sporadically Allergies, Adverse Reactions, Alerts Active Allergies Reaction Severity Comments Date Aspirin 01/30/2011 Lipitor 01/30/2011 Diclofenac worsening asthma 07/25/2014 Medications Active Medications SIG Qnty Indications Ordering Provider Date Methotrexate 3 tbs by mouth 36tabs M06.09 CELINE Ortega 05/03/2018 2.5mg every week Tablets Z79.899 Zyrtec Allergy 1 by mouth every Unknown 12/12/2014 10mg day Capsules Nasacort Allergy 24HR as needed Unknown 12/12/2014 55mcg/Act Aerosol Folic Acid take 1 tablet daily 90tabs M06.09 CELINE Ortega 04/24/2011 1mg Tablets Z79.899 Metformin HCL 1 every day Efrem Pyle M.D. 11/21/2010 500mg Tablets Omeprazole 1 po qd 90caps Unknown 20mg Capsules DR Justin Vitamin 1 po qd Unknown Tablets Crestor 1 by mouth every day 30tabs Unknown 20mg Tablets Ventolin HFA 2 puffs by mouth four Unknown times a day as needed 108(90Base) mcg/Act Aerosol Torsemide 1/2 by mouth every day Unknown 20mg Tablets Eliquis take 1 tablet by mouth Unknown 5mg Tablets twice a day Aspercreme apply twice daily to Unknown 10% Lotion affected area. Trulicity inject subcutaneously Unknown 1.5mg/0.5ML weekly Solution Pen-Inject Metoprolol Succinate 1 by mouth twice daily Unknown ER 100mg Tablets ER 24HR History Medications Methotrexate 5 tbs by mouth M06.09 Halle Davisk, 12/14/2017 - 2.5mg Tablets every week [facility] 05/03/2018 Z79.899 Cyclobenzaprine HCL take one tablet 30tabs M54.2 Rukhsanaofinegro Davisk, 2016 - 5mg Tablets by mouth 3x [employer] 08/14/2017 daily as needed for neck pain Hydrocodone-Acetaminophen 1 by mouth 15tabs M54.2 Halle Crowder, 2016 - every 6 hours [employer] 05/12/2017 5-325mg Tablets as needed for pain Methotrexate 6 tbs by mouth 72tabs M06.09 Halle Crowder, 09/19/2016 - 2.5mg Tablets every week [facility] 12/14/2017 Ativan 1 tab by mouth 1tabs Kermit Michael 07/08/2016 - 2mg Tablets 30 min before Jayme Bunch 08/14/2017 mri Valium 1 by mouth 2 2tabs Kermit Michael 05/21/2016 - 5mg Tablets hours prior to Jayme Bunch 07/08/2016 mri may take one more every 1 hour as needed anxiety Fluoxetine HCL 1 by mouth 30caps R42 Kermit Michael 05/14/2016 - 10mg Capsules every day Jayme Bunch 07/22/2016 Torsemide unknown dose. 60tabs Halle Crowder, 08/23/2015 - 5mg Tablets [facility] 12/23/2016 Furosemide 1 tab qd Unknown 04/30/2015 - 20mg Tablets 11/23/2015 Warfarin Sodium Unknown (take Unknown 04/30/2015 - Tablets as directed by 12/23/2016 ) Flexeril 1 by mouth Unknown 12/12/2014 - 10mg Tablets three times a 02/21/2015 day as needed Pyridoxine HCL 1 by mouth Unknown 12/12/2014 - 100mg Tablets every day 02/26/2016 Myrbetriq by mouth every Unknown 12/12/2014 - 25mg Tablets ER 24HR day 02/21/2015 Diclofenac Sodium 1 by mouth tid 90tabs 714.0 Efrem Pyle 07/14/2014 - 75mg Tablets please use this Jayme 08/22/2014 rx, not twice a day Methotrexate take 4 tablets 48tabs M06.09 Halle Crowder, 03/09/2014 - 2.5mg Tablets every week [facility] 09/19/2016 Hydroxychloroquine 1 tab by mouth 180tabs M06.09 Halle Crowder, 2013 - Sulfate twice a day [facility] 02/14/2019 200mg Tablets Z79.899 Methotrexate 4 tbs po every 48tabs 714.0 Halle Crowder, 04/01/2013 - 2.5mg Tablets week [facility] 03/09/2014 Voltaren apply to 5Tubes 715.96 Halle Crowder, 10/11/2012 - 1% Gel affected area [employer] 05/12/2017 bid, prn Ibuprofen by mouth three 30tabs Halle Davisk, 02/23/2012 - 800mg Tablets times a day as [facility] 11/21/2014 needed Lidoderm topical 10 30units Efrem Pyle, 07/10/2011 - 5% Patches hours M.D. 07/15/2012 Methotrexate take 6 tablets 72tabs 714.0 Halle Davisk, 04/24/2011 - 2.5mg Tablets once weekly as [facility] 04/01/2013 directed Verapamil HCL 1 daily Efrem Pyle, 11/21/2010 - 120mg Tablets M.D. 05/14/2016 Piroxicam 1 every day Efrem Pyle, 11/21/2010 - 20mg Capsules M.D. 01/29/2011 Simvastatin Efrem Pyle, 11/21/2010 - 40mg Tablets M.D. 08/22/2014 Torsemide take 1/2 Unknown - 10mg Tablets tablet by mouth 05/24/2015 every other day Metoprolol Tartrate 1 po bid Unknown - 50mg 02/14/2019 Tablets Verapamil HCL ER Rowan Harris, - 180mg MD 11/20/2014 Tablets ER Verapamil HCL ER 1 by mouth Unknown - 180mg Caps every day 08/23/2015 ER 24HR B Complex 1 by mouth Unknown - Capsules every day 02/26/2016 Iron 1 by mouth Unknown - 325(65Fe) mg Tablets every day 02/26/2016 Calcium 600 + D Unknown - 02/10/2017 [id number] Tablets Verapamil HCL ER 1 by mouth Unknown - 180mg Caps every day 02/10/2017 ER 24HR Pyridoxine HCL 1 by mouth Unknown - 100mg every day 12/23/2016 Tablets [place]-3-6-9 1 by mouth Unknown - 1200mg Capsules every day 12/23/2016 Digitek 1 by mouth Unknown - 125mcg Tablets every day 02/10/2017 Cyclobenzaprine HCL take one at 30tabs Unknown - bedtime as 11/21/2014 Tablets needed Krill Oil 1` by mouth Unknown - Capsules every day 12/23/2016 Myrbetriq by mouth every Unknown - 25mg Tablets ER day x 3 weeks 08/22/2014 24HR for start.. Amoxicillin 1 po qid 30tabs Unknown - 500mg Tablets 06/24/2013 Glucosamine-Chondroitin po bid Unknown - 06/24/2013 500-400mg Drink Glucosamine Sulfate 1 po qd Unknown - 500mg 12/08/2011 Capsules Oxycodone/Acetaminophen 1-2 po qid prn 240tabs Unknown - 04/01/2013 10-325mg Tablets Vitamin B 6 1 po qd 30tabs Unknown - 100mg Tablets 08/23/2015 [place] 3 1 po tid Unknown - 1200mg Capsules 05/23/2014 Calcium 500 +D 1 po bid 60tabs Unknown - 02/21/2015 [id number] Tablets Vitamin B-12 qd 90tabs Unknown - Natural 08/23/2015 500mcg Tablets Fluoxetine 1 po qd 30caps Unknown - 20mg Capsules 05/28/2016 Immunizations CPT Code Status Date Vaccine Lot # [id number] Given 12/14/2017 Pneumococcal Conjugate Vaccine 13 Valent For [id number] Intramuscular Use Vital Signs Date Vital Result Comment 02/14/2019 8:13am Height 66 inches 5'6" Weight 279.12 lb Heart Rate 57 /min BP Systolic Sitting 104 mmHg BP Diastolic Sitting 70 mmHg Body Temperature 97.4 F O2 % BldC Oximetry 99 % BMI (Body Mass Index) 45.0 kg/m2 01/28/2019 8:48am Height 66 inches 5'6" Weight 274.00 lb Heart Rate 63 /min BP Systolic Sitting 118 mmHg Rue lg cuff BP Diastolic Sitting 72 mmHg Rue lg cuff Respiratory Rate 16 /min BMI (Body Mass Index) 44.2 kg/m2 11/08/2018 9:48am Height 66 inches 5'6" Weight 282.00 lb Heart Rate 56 /min BP Systolic Sitting 120 mmHg BP Diastolic Sitting 80 mmHg Pain Level 4 O2 % BldC Oximetry 98 % BMI (Body Mass Index) 45.5 kg/m2 08/09/2018 10:13am Height 66 inches 5'6" Weight 288.25 lb Heart Rate 58 /min BP Systolic Sitting 120 mmHg BP Diastolic Sitting 84 mmHg Pain Level 5 O2 % BldC Oximetry 99 % BMI (Body Mass Index) 46.5 kg/m2 05/03/2018 10:28am Height 66 inches 5'6" Weight 281.38 lb Heart Rate 60 /min BP Systolic 120 mmHg BP Diastolic 68 mmHg Pain Level 2 O2 % BldC Oximetry 98 % BMI (Body Mass Index) 45.4 kg/m2 12/14/2017 2:36pm Weight 282.00 lb Heart Rate 48 /min BP Systolic Sitting 120 mmHg BP Diastolic Sitting 60 mmHg O2 % BldC Oximetry 97 % 08/14/2017 9:44am Height 66 inches 5'6" Weight 286.38 lb Heart Rate 58 /min BP Systolic Sitting 123 mmHg BP Diastolic Sitting 66 mmHg Respiratory Rate 15 /min Pain Level 4 BMI (Body Mass Index) 46.2 kg/m2 05/12/2017 10:31am Height 66 inches 5'6" Weight 278.00 lb Heart Rate 60 /min BP Systolic Sitting 120 mmHg BP Diastolic Sitting 80 mmHg Respiratory Rate 14 /min Pain Level 3 BMI (Body Mass Index) 44.9 kg/m2 03/11/2017 11:48am Height 66 inches 5'6" Heart Rate 64 /min BP Systolic Sitting 120 mmHg BP Diastolic Sitting 80 mmHg Respiratory Rate 14 /min Pain Level 9 02/10/2017 11:09am Height 66 inches 5'6" Weight 286.00 lb Heart Rate 86 /min BP Systolic Sitting 130 mmHg BP Diastolic Sitting 80 mmHg Respiratory Rate 14 /min BMI (Body Mass Index) 46.2 kg/m2 12/23/2016 9:43am Height 66 inches 5'6" Weight 291.00 lb Heart Rate 90 /min BP Systolic Sitting 126 mmHg BP Diastolic Sitting 80 mmHg Body Temperature 97.6 F Pain Level 4 BMI (Body Mass Index) 47.0 kg/m2 12/19/2016 11:09am Height 66 inches 5'6" Weight 290.00 lb Heart Rate 126 /min BP Systolic Sitting 138 mmHg BP Diastolic Sitting 80 mmHg Respiratory Rate 22 /min Pain Level 2 Joint Pain O2 % BldC Oximetry 89 % BMI (Body Mass Index) 46.8 kg/m2 09/19/2016 9:17am Height 66 inches 5'6" Weight 292.44 lb Heart Rate 68 /min BP Systolic Sitting 110 mmHg BP Diastolic Sitting 70 mmHg Respiratory Rate 14 /min Body Temperature 96.9 F Pain Level 7 BMI (Body Mass Index) 47.2 kg/m2 07/23/2016 9:38am Height 66 inches 5'6" Weight 292.00 lb Heart Rate 104 /min BP Systolic Sitting 124 mmHg BP Diastolic Sitting 80 mmHg BMI (Body Mass Index) 47.1 kg/m2 06/20/2016 8:19am Height 66 inches 5'6" Weight 296.00 lb Heart Rate 53 /min BP Systolic Sitting 140 mmHg BP Diastolic Sitting 76 mmHg Respiratory Rate 18 /min O2 % BldC Oximetry 96 % BMI (Body Mass Index) 47.8 kg/m2 05/28/2016 8:12am Height 66 inches 5'6" Weight 297.00 lb Heart Rate 60 /min BP Systolic Sitting 136 mmHg BP Diastolic Sitting 70 mmHg Respiratory Rate 14 /min Body Temperature 97.3 F Pain Level 0 BMI (Body Mass Index) 47.9 kg/m2 05/14/2016 11:26am Height 66 inches 5'6" Weight 295.00 lb Heart Rate 68 /min BP Systolic Sitting 130 mmHg BP Diastolic Sitting 72 mmHg Respiratory Rate 17 /min BMI (Body Mass Index) 47.6 kg/m2 02/26/2016 8:17am Height 66 inches 5'6" Weight 292.00 lb Heart Rate 60 /min BP Systolic Sitting 130 mmHg BP Diastolic Sitting 70 mmHg Body Temperature 97.1 F Pain Level 4 BMI (Body Mass Index) 47.1 kg/m2 01/11/2016 9:08am Height 66 inches 5'6" Weight 290.00 lb Heart Rate 85 /min BP Systolic Sitting 120 mmHg BP Diastolic Sitting 82 mmHg Respiratory Rate 16 /min O2 % BldC Oximetry 97 % BMI (Body Mass Index) 46.8 kg/m2 11/23/2015 8:15am Height 66 inches 5'6" Weight 289.38 lb Heart Rate 58 /min BP Systolic Sitting 118 mmHg BP Diastolic Sitting 80 mmHg Respiratory Rate 14 /min Pain Level 4 BMI (Body Mass Index) 46.7 kg/m2 10/12/2015 2:06pm Height 66 inches 5'6" Weight 295.38 lb Heart Rate 104 /min BP Systolic Sitting 140 mmHg BP Diastolic Sitting 88 mmHg Respiratory Rate 18 /min O2 % BldC Oximetry 96 % BMI (Body Mass Index) 47.7 kg/m2 08/23/2015 9:10am Height 66 inches 5'6" Weight 295.38 lb Heart Rate 60 /min BP Systolic Sitting 126 mmHg BP Diastolic Sitting 80 mmHg Respiratory Rate 20 /min Pain Level 5 BMI (Body Mass Index) 47.7 kg/m2 06/12/2015 8:29am Height 66 inches 5'6" Weight 299.00 lb reported Heart Rate 57 /min BP Systolic 132 mmHg BP Diastolic 68 mmHg Respiratory Rate 14 /min O2 % BldC Oximetry 97 % BMI (Body Mass Index) 48.3 kg/m2 05/24/2015 8:29am Height 66 inches 5'6" Weight 299.00 lb Heart Rate 60 /min BP Systolic Sitting 134 mmHg BP Diastolic Sitting 60 mmHg Respiratory Rate 14 /min Pain Level 6 BMI (Body Mass Index) 48.3 kg/m2 05/01/2015 9:06am Heart Rate 52 /min BP Systolic 128 mmHg BP Diastolic 86 mmHg Respiratory Rate 14 /min O2 % BldC Oximetry 98 % 03/13/2015 8:15am Height 66 inches 5'6" Weight 289.00 lb Heart Rate 57 /min BP Systolic Sitting 118 mmHg BP Diastolic Sitting 60 mmHg Respiratory Rate 18 /min O2 % BldC Oximetry 97 % BMI (Body Mass Index) 46.6 kg/m2 02/21/2015 8:40am Height 66 inches 5'6" Weight 291.00 lb Heart Rate 56 /min BP Systolic Sitting 110 mmHg BP Diastolic Sitting 70 mmHg Pain Level 1 BMI (Body Mass Index) 47.0 kg/m2 12/13/2014 1:54pm Height 66 inches 5'6" Weight 283.12 lb Heart Rate 60 /min BP Systolic Sitting 132 mmHg BP Diastolic Sitting 68 mmHg Respiratory Rate 20 /min Body Temperature 97.8 F O2 % BldC Oximetry 98 % BMI (Body Mass Index) 45.7 kg/m2 Neck Circumference in inches 16 11/21/2014 8:39am Height 65 inches 5'5" Weight 292.00 lb Heart Rate 64 /min BP Systolic Sitting 120 mmHg BP Diastolic Sitting 70 mmHg Pain Level 6 BMI (Body Mass Index) 48.6 kg/m2 08/22/2014 8:40am Height 65 inches 5'5" Weight 292.00 lb Heart Rate 64 /min BP Systolic 110 mmHg BP Diastolic 60 mmHg Pain Level 3 BMI (Body Mass Index) 48.6 kg/m2 07/14/2014 1:44pm Height 65 inches 5'5" Weight 300.00 lb per pt (pt declined actual wt) Heart Rate 100 /min BP Systolic Sitting 144 mmHg BP Diastolic Sitting 84 mmHg Pain Level 8 BMI (Body Mass Index) 49.9 kg/m2 05/23/2014 2:37pm Height 65 inches 5'5" Weight 293.50 lb Heart Rate 54 /min BP Systolic 130 mmHg BP Diastolic 72 mmHg Pain Level 4 BMI (Body Mass Index) 48.8 kg/m2 03/09/2014 8:35am Height 65 inches 5'5" Weight 286.25 lb Heart Rate 75 /min BP Systolic Sitting 126 mmHg BP Diastolic Sitting 78 mmHg Pain Level 3 BMI (Body Mass Index) 47.6 kg/m2 12/15/2013 10:00am Height 65 inches 5'5" Weight 287.75 lb Heart Rate 74 /min BP Systolic Sitting 126 mmHg BP Diastolic Sitting 66 mmHg BMI (Body Mass Index) 47.9 kg/m2 09/22/2013 9:37am Height 65 inches 5'5" Weight 291.00 lb Heart Rate 68 /min BP Systolic Sitting 124 mmHg BP Diastolic Sitting 74 mmHg BMI (Body Mass Index) 48.4 kg/m2 09/22/2013 9:35am Height 65 inches 5'5" 06/24/2013 1:19pm Height 65 inches 5'5" Weight 294.12 lb Heart Rate 60 /min BP Systolic Sitting 126 mmHg BP Diastolic Sitting 72 mmHg BMI (Body Mass Index) 48.9 kg/m2 04/01/2013 1:17pm Weight 290.00 lb BP Systolic Sitting 128 mmHg BP Diastolic Sitting 78 mmHg 01/07/2013 8:29am Height 66 inches 5'6" Weight 282.00 lb Heart Rate 81 /min BP Systolic Sitting 122 mmHg BP Diastolic Sitting 78 mmHg BMI (Body Mass Index) 45.5 kg/m2 10/11/2012 2:13pm Height 66 inches 5'6" Weight 278.00 lb Heart Rate 78 /min BP Systolic Sitting 128 mmHg BP Diastolic Sitting 74 mmHg BMI (Body Mass Index) 44.9 kg/m2 07/15/2012 10:03am Height 66 inches 5'6" Weight 280.00 lb Heart Rate 77 /min BP Systolic Sitting 124 mmHg BP Diastolic Sitting 74 mmHg BMI (Body Mass Index) 45.2 kg/m2 05/06/2012 9:47am Height 66 inches 5'6" Weight 278.00 lb Heart Rate 71 /min BP Systolic Sitting 128 mmHg BP Diastolic Sitting 76 mmHg BMI (Body Mass Index) 44.9 kg/m2 02/23/2012 9:52am Height 66 inches 5'6" Weight 272.00 lb Heart Rate 77 /min BP Systolic Sitting 131 mmHg BP Diastolic Sitting 73 mmHg BMI (Body Mass Index) 43.9 kg/m2 12/08/2011 10:25am Height 66 inches 5'6" Weight 276.00 lb Heart Rate 72 /min BP Systolic Sitting 126 mmHg BP Diastolic Sitting 72 mmHg BMI (Body Mass Index) 44.5 kg/m2 09/25/2011 1:07pm Height 66 inches 5'6" Weight 278.00 lb Heart Rate 70 /min BP Systolic Sitting 128 mmHg BP Diastolic Sitting 72 mmHg BMI (Body Mass Index) 44.9 kg/m2 07/10/2011 11:40am Height 66 inches 5'6" Weight 280.00 lb Heart Rate 60 /min BP Systolic Sitting 140 mmHg BP Diastolic Sitting 80 mmHg BMI (Body Mass Index) 45.2 kg/m2 04/24/2011 8:54am Height 66 inches 5'6" Weight 275.00 lb Heart Rate 76 /min BP Systolic 118 mmHg BP Diastolic 70 mmHg BMI (Body Mass Index) 44.4 kg/m2 01/30/2011 9:07am Height 66 inches 5'6" Weight 275.00 lb Heart Rate 78 /min BP Systolic 126 mmHg BP Diastolic 78 mmHg BMI (Body Mass Index) 44.4 kg/m2 11/21/2010 9:18am Height 66 inches 5'6" Weight 280.00 lb BP Systolic 160 mmHg BP Diastolic 80 mmHg BMI (Body Mass Index) 45.2 kg/m2 Results Test Date Facility Test Result H/L Range Note CBC Auto Diff 12/06/2018 [facility] White Blood 3.5 10^3/uL N 3.5-10.[address] [place] [address] [phone] Red Blood Count 3.69 10^6/uL Low 3.70-4.87 Hemoglobin 11.8 g/dL Low 12.0-16.0 Hematocrit 36 % N 33-41 Mean Corpuscular Volume 97 fL N 80-97 Mean Corpuscular Hemoglobin 32 pg High 27-31 Mean Corpuscular HGB Conc 33 g/dL N 31-36 Red Cell Distribution Width 15 % N 10.5-15 Platelet Count 173 10^3/uL N 150-450 Mean Platelet Volume 9.6 fL N 7.4-10.4 Abs Neutrophils 2.2 10^3/uL N 1.5-7.7 Abs Lymphocytes 0.8 10^3/uL Low 1.0-4.8 Abs Monocytes 0.3 10^3/uL N 0-0.8 Abs Eosinophils 0.2 10^3/uL N 0-0.6 Abs Basophils 0 10^3/uL N 0-0.2 Abs Nucleated RBC 0 10^3/uL Granulocyte % 64.1 % Lymphocyte % 22.7 % Monocyte % 8.4 % Eosinophil % 4.3 % Basophil % 0.5 % Nucleated Red Blood Cells % 0.1 Comp Metabolic Panel 11/03/2018 [facility] Sodium 139 mmol/L N 135-[address] [place] [address] [phone] Potassium 4.0 mmol/L N 3.5-5.0 Chloride 99 mmol/L Low 101-111 Co2 Carbon Dioxide 32 mmol/L N 22-32 Anion Gap 8 mmol/L N 2-11 Glucose 176 mg/dL High 70-100 Blood Urea Nitrogen 28 mg/dL High 6-24 Creatinine 1.17 mg/dL High 0.51-0.95 BUN/Creatinine Ratio 23.9 High 8-20 Calcium 9.5 mg/dL N 8.6-10.3 Total Protein 7.0 g/dL N 6.4-8.9 Albumin 4.4 g/dL N 3.2-5.2 Globulin 2.6 g/dL N 2-4 Albumin/Globulin Ratio 1.7 N 1-3 Total Bilirubin 1.10 mg/dL High 0.2-1.0 Alkaline Phosphatase 67 U/L N 34-104 Alt 14 U/L N 7-52 Ast 22 U/L N 13-39 Egfr Non- 46.3 >60 Egfr 56.0 >60 2 Laboratory test 11/03/2018 [facility] C Reactive 1.04 mg/L N < 8.01 [address] [place] [address] [phone] Erythrocyte Sed Rate 52 mm/Hr High 0-30 4 CBC Auto 11/03/2018 [facility] White Blood 3.0 10^3/uL Low 3.5 -10.[address] [place] [address] [phone] Red Blood Count 3.58 10^6/uL Low 4.00-5.40 Hemoglobin 11.5 g/dL Low 12.0-16.0 Hematocrit 35 % N 35-47 Mean Corpuscular Volume 97 fL N 80-97 Mean Corpuscular Hemoglobin 32 pg High 27-31 Mean Corpuscular HGB Conc 33 g/dL N 31-36 Red Cell Distribution Width 15 % N 10.5-15 Platelet Count 167 10^3/uL N 150-450 Mean Platelet Volume 9.3 fL N 7.4-10.4 Abs Neutrophils 1.8 10^3/uL N 1.5-7.7 Abs Lymphocytes 0.7 10^3/uL Low 1.0-4.8 Abs Monocytes 0.3 10^3/uL N 0-0.8 Abs Eosinophils 0.2 10^3/uL N 0-0.6 Abs Basophils 0 10^3/uL N 0-0.2 Abs Nucleated RBC 0 10^3/uL Granulocyte % 60.4 % Lymphocyte % 23.8 % Monocyte % 8.8 % Eosinophil % 6.4 % Basophil % 0.6 % Nucleated Red Blood Cells % 0 CBC Auto Diff 08/06/2018 [facility] White Blood 3.7 10^3/uL N 3.5-10.[address] [place] [address] [phone] Red Blood Count 3.38 10^6/uL Low 4.00-5.40 Hemoglobin 11.0 g/dL Low 12.0-16.0 Hematocrit 33 % Low 35-47 Mean Corpuscular Volume 97 fL N 80-97 Mean Corpuscular Hemoglobin 33 pg High 27-31 Mean Corpuscular HGB Conc 34 g/dL N 31-36 Red Cell Distribution Width 15 % N 10.5-15 Platelet Count 160 10^3/uL N 150-450 Mean Platelet Volume 9.7 fL N 7.4-10.4 Abs Neutrophils 2.1 10^3/uL N 1.5-7.7 Abs Lymphocytes 1.0 10^3/uL N 1.0-4.8 Abs Monocytes 0.4 10^3/uL N 0-0.8 Abs Eosinophils 0.2 10^3/uL N 0-0.6 Abs Basophils 0 10^3/uL N 0-0.2 Abs Nucleated RBC 0 10^3/uL Granulocyte % 57.3 % N 38-83 Lymphocyte % 26.1 % N 25-47 Monocyte % 11.1 % High 0-7 Eosinophil % 4.9 % N 0-6 Basophil % 0.6 % N 0-2 Nucleated Red Blood Cells % 0 Comp Metabolic Panel 08/06/2018 [facility] Sodium 141 mmol/L N 135-145 [address] [place] [address] [phone] Potassium 3.9 mmol/L N 3.5-5.0 Chloride 103 mmol/L N 101-111 Co2 Carbon Dioxide 33 mmol/L High 22-32 Anion Gap 5 mmol/L N 2-11 Glucose 135 mg/dL High 70-100 Blood Urea Nitrogen 29 mg/dL High 6-24 Creatinine 1.13 mg/dL High 0.51-0.95 BUN/Creatinine Ratio 25.7 High 8-20 Calcium 9.5 mg/dL N 8.6-10.3 Total Protein 6.7 g/dL N 6.4-8.9 Albumin 4.2 g/dL N 3.2-5.2 Globulin 2.5 g/dL N 2-4 Albumin/Globulin Ratio 1.7 N 1-3 Total Bilirubin 1.30 mg/dL High 0.2-1.0 Alkaline Phosphatase 63 U/L N 34-104 Alt 17 U/L N 7-52 Ast 25 U/L N 13-39 Egfr Non- 48.2 >60 Egfr 58.3 >60 5 Laboratory test 08/06/2018 [facility] C Reactive 1.01 mg/L N < 8.[address] [place] [address] [phone] Erythrocyte Sed Rate 45 mm/Hr High 0-40 CBC Auto Diff 08/12/2017 [facility] White Blood 4.1 10^3/uL N 3.5-10.[address] [place] [address] [phone] Red Blood Count 3.47 10^6/uL Low 4.0-5.4 Hemoglobin 11.2 g/dL Low 12.0-16.0 Hematocrit 34 % Low 35-47 Mean Corpuscular Volume 99 fL High 80-97 Mean Corpuscular Hemoglobin 32 pg High 27-31 Mean Corpuscular HGB Conc 33 g/dL N 31-36 Red Cell Distribution Width 14 % N 10.5-15 Platelet Count 175 10^3/uL N 150-450 Mean Platelet Volume 10 um3 N 7.4-10.4 Abs Neutrophils 2.9 10^3/uL N 1.5-7.7 Abs Lymphocytes 0.8 10^3/uL Low 1.0-4.8 Abs Monocytes 0.3 10^3/uL N 0-0.8 Abs Eosinophils 0.1 10^3/uL N 0-0.6 Abs Basophils 0 10^3/uL N 0-0.2 Abs Nucleated RBC 0 10^3/uL Granulocyte % 70.2 % N 38-83 Lymphocyte % 19.1 % Low 25-47 Monocyte % 6.7 % N 1-9 Eosinophil % 3.5 % N 0-6 Basophil % 0.5 % N 0-2 Nucleated Red Blood Cells % 0 Comp Metabolic Panel 08/12/2017 [facility] Sodium 140 mmol/L N 133-[address] [place] [address] [phone] Potassium 3.6 mmol/L N 3.5-5.0 Chloride 100 mmol/L Low 101-111 Co2 Carbon Dioxide 33 mmol/L High 22-32 Anion Gap 7 mmol/L N 2-11 Glucose 172 mg/dL High 70-100 Blood Urea Nitrogen 26 mg/dL High 6-24 Creatinine 1.07 mg/dL High 0.51-0.95 BUN/Creatinine Ratio 24.3 High 8-20 Calcium 9.3 mg/dL N 8.6-10.3 Total Protein 6.5 g/dL N 6.4-8.9 Albumin 3.9 g/dL N 3.2-5.2 Globulin 2.6 g/dL N 2-4 Albumin/Globulin Ratio 1.5 N 1-3 Total Bilirubin 1.10 mg/dL High 0.2-1.0 Alkaline Phosphatase 68 U/L N 34-104 Alt 14 U/L N 7-52 Ast 19 U/L N 13-39 Egfr Non- 51.5 >60 Egfr 66.2 >60 6 Laboratory test 08/12/2017 [facility] C Reactive 4.61 mg/L N < 5.00 [address] [place] [address] [phone] Erythrocyte Sed Rate 40 mm/Hr N 0-40 CBC Auto 02/10/2017 [facility] White Blood 3.4 10^3/uL Low 3.5 -10.[address] [place] [address] [phone] Red Blood Count 3.46 10^6/uL Low 4.0-5.4 Hemoglobin 11.3 g/dL Low 12.0-16.0 Hematocrit 34 % Low 35-47 Mean Corpuscular Volume 99 fL High 80-97 Mean Corpuscular Hemoglobin 33 pg High 27-31 Mean Corpuscular HGB Conc 33 g/dL N 31-36 Red Cell Distribution Width 16 % High 10.5-15 Platelet Count 162 10^3/uL N 150-450 Mean Platelet Volume 10 um3 N 7.4-10.4 Abs Neutrophils 2.2 10^3/uL N 1.5-7.7 Abs Lymphocytes 0.7 10^3/uL Low 1.0-4.8 Abs Monocytes 0.3 10^3/uL N 0-0.8 Abs Eosinophils 0.2 10^3/uL N 0-0.6 Abs Basophils 0 10^3/uL N 0-0.2 Abs Nucleated RBC 0 10^3/uL N Granulocyte % 63.6 % N 38-83 Lymphocyte % 21.7 % Low 25-47 Monocyte % 9.0 % N 1-9 Eosinophil % 5.0 % N 0-6 Basophil % 0.7 % N 0-2 Nucleated Red Blood Cells % 0 N CBC Auto Diff 11/04/2016 [facility] White Blood 4.0 10^3/uL N 3.5-10.[address] [place] [address] [phone] Red Blood Count 3.65 10^6/uL Low 4.0-5.4 Hemoglobin 11.5 g/dL Low 12.0-16.0 Hematocrit 35 % N 35-47 Mean Corpuscular Volume 96 fL N 80-97 Mean Corpuscular Hemoglobin 32 pg High 27-31 Mean Corpuscular HGB Conc 33 g/dL N 31-36 Red Cell Distribution Width 16 % High 10.5-15 Platelet Count 161 10^3/uL N 150-450 Mean Platelet Volume 10 um3 N 7.4-10.4 Abs Neutrophils 2.6 10^3/uL N 1.5-7.7 Abs Lymphocytes 1.0 10^3/uL N 1.0-4.8 Abs Monocytes 0.3 10^3/uL N 0-0.8 Abs Eosinophils 0.1 10^3/uL N 0-0.6 Abs Basophils 0 10^3/uL N 0-0.2 Abs Nucleated RBC 0 10^3/uL N Granulocyte % 64.2 % N 38-83 Lymphocyte % 24.7 % Low 25-47 Monocyte % 7.2 % N 1-9 Eosinophil % 2.9 % N 0-6 Basophil % 1.0 % N 0-2 Nucleated Red Blood Cells % 0.1 N Comp Metabolic Panel 11/04/2016 [facility] Sodium 138 mmol/L N 133-[address] [place] [address] [phone] Potassium 4.0 mmol/L N 3.5-5.0 Chloride 98 mmol/L Low 101-111 Co2 Carbon Dioxide 37 mmol/L High 22-32 Anion Gap 3 mmol/L N 2-11 Glucose 139 mg/dL High 70-100 Blood Urea Nitrogen 32 mg/dL High 6-24 Creatinine 1.20 mg/dL High 0.51-0.95 BUN/Creatinine Ratio 26.7 High 8-20 Calcium 9.6 mg/dL N 8.6-10.3 Total Protein 6.8 g/dL N 6.4-8.9 Albumin 3.9 g/dL N 3.2-5.2 Globulin 2.9 g/dL N 2-4 Albumin/Globulin Ratio 1.3 N 1-3 Total Bilirubin 1.20 mg/dL High 0.2-1.0 Alkaline Phosphatase 60 U/L N 34-104 Alt 17 U/L N 7-52 Ast 26 U/L N 13-39 Egfr Non- 45.2 N >60 Egfr 58.2 N >60 8 Laboratory test 11/04/2016 [facility] C Reactive 7.22 mg/L High < 5.00 [address] [place] [address] [phone] Erythrocyte Sed Rate 57 mm/Hr High 0-30 10 Laboratory test 05/14/2016 [facility] TSH (Thyroid 1.26 mcIU/mL N 0.34-5.60 [address] Stim [place]orm) [place] [address] [phone] Comp Metabolic 05/14/2016 [facility] Sodium 139 mmol/L N 133- [address] [place] [address] [phone] Potassium 4.0 mmol/L N 3.5-5.0 Chloride 102 mmol/L N 101-111 Co2 Carbon Dioxide 32 mmol/L N 22-32 Anion Gap 5 mmol/L N 2-11 Glucose 114 mg/dL High 70-100 Blood Urea Nitrogen 16 mg/dL N 6-24 Creatinine 0.83 mg/dL N 0.51-0.95 BUN/Creatinine Ratio 19.3 N 8-20 Calcium 9.1 mg/dL N 8.6-10.3 Total Protein 6.9 g/dL N 6.4-8.9 Albumin 4.1 g/dL N 3.2-5.2 Globulin 2.8 g/dL N 2-4 Albumin/Globulin Ratio 1.5 N 1-3 Total Bilirubin 0.90 mg/dL N 0.2-1.0 Alkaline Phosphatase 58 U/L N 34-104 Alt 17 U/L N 7-52 Ast 24 U/L N 13-39 Egfr Non- 69.4 N >60 Egfr 89.3 N >60 12 Laboratory test 05/14/2016 [facility] C Reactive 4.33 mg/L N < 5.00 [address] [place] [address] [phone] CBC Auto Diff 05/14/2016 [facility] White Blood 3.4 Low 3.5- 10.[address] Count 10^3/uL [place], [place] [id number] [phone] Red Blood Count 3.57 10^6/uL Low 4.0-5.4 Hemoglobin 11.2 g/dL Low 12.0-16.0 Hematocrit 34 % Low 35-47 Mean Corpuscular Volume 95 fL N 80-97 Mean Corpuscular Hemoglobin 32 pg High 27-31 Mean Corpuscular HGB Conc 33 g/dL N 31-36 Red Cell Distribution Width 15 % N 10.5-15 Platelet Count 188 10^3/uL N 150-450 Mean Platelet Volume 9 um3 N 7.4-10.4 Abs Neutrophils 2.3 10^3/uL N 1.5-7.7 Abs Lymphocytes 0.8 10^3/uL Low 1.0-4.8 Abs Monocytes 0.3 10^3/uL N 0-0.8 Abs Eosinophils 0.1 10^3/uL N 0-0.6 Abs Basophils 0 10^3/uL N 0-0.2 Abs Nucleated RBC 0 10^3/uL N Granulocyte % 65.4 % N 38-83 Lymphocyte % 22.4 % Low 25-47 Monocyte % 8.5 % N 1-9 Eosinophil % 3.3 % N 0-6 Basophil % 0.4 % N 0-2 Nucleated Red Blood Cells % 0.1 N Laboratory test 05/14/2016 [facility] Erythrocyte Sed 54 mm/Hr High 0-[address] [place] [address] [phone] Comp Metabolic 02/23/2016 [facility] Sodium 138 N 133-[address] mmol/[place] [address] [phone] Potassium 4.0 mmol/L N 3.5-5.0 Chloride 104 mmol/L N 101-111 Co2 Carbon Dioxide 28 mmol/L N 22-32 Anion Gap 6 mmol/L N 2-11 Glucose 163 mg/dL High 70-100 Blood Urea Nitrogen 28 mg/dL High 6-24 Creatinine 0.96 mg/dL High 0.51-0.95 BUN/Creatinine Ratio 29.2 High 8-20 Calcium 9.0 mg/dL N 8.6-10.3 Total Protein 6.8 g/dL N 6.4-8.9 Albumin 4.2 g/dL N 3.2-5.2 Globulin 2.6 g/dL N 2-4 Albumin/Globulin Ratio 1.6 N 1-3 Total Bilirubin 1.00 mg/dL N 0.2-1.0 Alkaline Phosphatase 57 U/L N 34-104 Alt 23 U/L N 7-52 Ast 24 U/L N 13-39 Egfr Non- 58.7 N >60 Egfr 75.5 N >60 14 Laboratory test 02/23/2016 [facility] C Reactive 2.62 mg/L N < 5.00 [address] [place] [address] [phone] CBC Auto Diff 02/23/2016 [facility] White Blood 4.4 N 3.5- 10.[address] Count 10^3/[place] [address] [phone] Red Blood Count 3.63 10^6/uL Low 4.0-5.4 Hemoglobin 11.4 g/dL Low 12.0-16.0 Hematocrit 35 % N 35-47 Mean Corpuscular Volume 95 fL N 80-97 Mean Corpuscular Hemoglobin 31 pg N 27-31 Mean Corpuscular HGB Conc 33 g/dL N 31-36 Red Cell Distribution Width 15 % N 10.5-15 Platelet Count 160 10^3/uL N 150-450 Mean Platelet Volume 10 um3 N 7.4-10.4 Abs Neutrophils 2.6 10^3/uL N 1.5-7.7 Abs Lymphocytes 1.2 10^3/uL N 1.0-4.8 Abs Monocytes 0.4 10^3/uL N 0-0.8 Abs Eosinophils 0.2 10^3/uL N 0-0.6 Abs Basophils 0 10^3/uL N 0-0.2 Abs Nucleated RBC 0.01 10^3/uL N Granulocyte % 60.1 % N 38-83 Lymphocyte % 26.7 % N 25-47 Monocyte % 8.0 % N 1-9 Eosinophil % 4.5 % N 0-6 Basophil % 0.7 % N 0-2 Nucleated Red Blood Cells % 0.2 N Laboratory test 02/23/2016 [facility] Erythrocyte Sed 28 mm/Hr N 0-30 [address] [place] [address] [phone] CBC Auto Diff 11/21/2015 [facility] White Blood 3.2 Low 3.5- 10.[address] Count 10^3/[place] [address] [phone] Red Blood Count 3.51 10^6/uL Low 4.0-5.4 Hemoglobin 10.9 g/dL Low 12.0-16.0 Hematocrit 34 % Low 35-47 Mean Corpuscular Volume 96 fL N 80-97 Mean Corpuscular Hemoglobin 31 pg N 27-31 Mean Corpuscular HGB Conc 33 g/dL N 31-36 Red Cell Distribution Width 16 % High 10.5-15 Platelet Count 148 10^3/uL Low 150-450 Mean Platelet Volume 10 um3 N 7.4-10.4 Abs Neutrophils 2.1 10^3/uL N 1.5-7.7 Abs Lymphocytes 0.8 10^3/uL Low 1.0-4.8 Abs Monocytes 0.3 10^3/uL N 0-0.8 Abs Eosinophils 0.1 10^3/uL N 0-0.6 Abs Basophils 0 10^3/uL N 0-0.2 Abs Nucleated RBC 0 10^3/uL N Granulocyte % 64.5 % N 38-83 Lymphocyte % 24.0 % Low 25-47 Monocyte % 8.0 % N 1-9 Eosinophil % 3.2 % N 0-6 Basophil % 0.3 % N 0-2 Nucleated Red Blood Cells % 0.1 N Comp Metabolic Panel 11/21/2015 [facility] Sodium 139 mmol/L N 133-[address] [place] [address] [phone] Potassium 4.2 mmol/L N 3.5-5.0 Chloride 102 mmol/L N 101-111 Co2 Carbon Dioxide 32 mmol/L N 22-32 Anion Gap 5 mmol/L N 2-11 Glucose 124 mg/dL High 70-100 Blood Urea Nitrogen 24 mg/dL N 6-24 Creatinine 1.14 mg/dL High 0.51-0.95 BUN/Creatinine Ratio 21.1 High 8-20 Calcium 9.1 mg/dL N 8.6-10.3 Total Protein 6.6 g/dL N 6.4-8.9 Albumin 4.1 g/dL N 3.2-5.2 Globulin 2.5 g/dL N 2-4 Albumin/Globulin Ratio 1.6 N 1-3 Total Bilirubin 1.00 mg/dL N 0.2-1.0 Alkaline Phosphatase 55 U/L N 34-104 Alt 15 U/L N 7-52 Ast 20 U/L N 13-39 Egfr Non- 48.1 N >60 Egfr 61.9 N >60 17 Laboratory test 11/21/2015 [facility] Erythrocyte Sed 33 mm/Hr High 0-30 [address] [place] [address] [phone] C Reactive Protein 1.81 mg/L N < 5.00 19 Iron And Tibc Serum 08/23/2015 Other [facility]endering Iron <pending> Iron Binding Capacity (Tibc) <pending> Laboratory test finding 07/14/2014 Uric Acid 5.5 mg/dL N 2.3-6.6 CBC Auto Diff 07/14/2014 White Blood Count 4.6 10^3/uL Low 4.8-10.8 Red Blood Count 3.63 10^6/uL Low 4.0-5.4 Hemoglobin 11.7 g/dL Low 12.0-16.0 Hematocrit 34 % Low 35-47 Mean Corpuscular Volume 95 fL N 80-97 Mean Corpuscular Hemoglobin 32 pg High 27-31 Mean Corpuscular HGB Conc 34 g/dL N 31-36 Red Cell Distribution Width 14 % N 10.5-15 Platelet Count 181 10^3/uL N 150-450 Mean Platelet Volume 10 um3 N 7.4-10.4 Abs Neutrophils 2.8 10^3/uL N 1.5-7.7 Abs Lymphocytes 1.2 10^3/uL N 1.0-4.8 Abs Monocytes 0.4 10^3/uL N 0-0.8 Abs Eosinophils 0.1 10^3/uL N 0-0.6 Abs Basophils 0 10^3/uL N 0-0.2 Abs Nucleated RBC 0 10^3/uL N Granulocyte % 62.1 % N 38-83 Lymphocyte % 26.7 % N 25-47 Monocyte % 8.3 % N 1-9 Eosinophil % 2.5 % N 0-6 Basophil % 0.4 % N 0-2 Nucleated Red Blood Cells % 0.1 N Comp Metabolic Panel 07/14/2014 Sodium 138 mmol/L N 133-145 Potassium 4.4 mmol/L N 3.7-5.6 Chloride 102 mmol/L N 101-111 Co2 Carbon Dioxide 31 mmol/L N 22-32 Anion Gap 5 mmol/L N 2-11 Glucose 137 mg/dL High 70-100 Blood Urea Nitrogen 19 mg/dL N 6-24 Creatinine 0.83 mg/dL N 0.51-0.95 BUN/Creatinine Ratio 22.9 High 8-20 Calcium 9.4 mg/dL N 8.6-10.3 Total Protein 7.0 g/dL N 6.4-8.9 Albumin 4.1 g/dL N 3.2-5.2 Globulin 2.9 g/dL N 2-4 Albumin/Globulin Ratio 1.4 N 1-3 Total Bilirubin 1.20 mg/dL High 0.2-1.0 Alkaline Phosphatase 65 U/L N 34-104 Alt 16 U/L N 7-52 Ast 19 U/L N 13-39 Egfr Non- 69.7 N >60 Egfr 89.6 N >60 20 Laboratory test finding 07/14/2014 C Reactive Protein 7.38 mg/L High < 5.00 21 Erythrocyte Sed Rate 44 mm/Hr High 0-30 CBC With 06/24/2013 [facility] White Blood 6.0 10^3/uL 4.8- 10.8 Manual Diff [address] [place] [address] [phone] Red Blood Count 3.63 10^6/uL Low 4.0-5.4 Hemoglobin 11.6 g/dL Low 12.0-16.0 Hematocrit 35 % 35-47 Mean Corpuscular Volume 97 fL 80-97 Mean Corpuscular Hemoglobin 32 pg High 27-31 Mean Corpuscular HGB Conc 33 g/dL 31-36 Red Cell Distribution Width 14 % 10.5-15 Platelet Count 214 10^3/uL 150-450 Mean Platelet Volume 10 um3 7.4-10.4 Abs Neutrophils 3.2 10^3/uL 1.5-7.7 Abs Lymphocytes 2.1 10^3/uL 1.0-4.8 Abs Monocytes 0.5 10^3/uL 0-0.8 Abs Eosinophils 0.2 10^3/uL 0-0.6 Abs Basophils 0 10^3/uL 0-0.2 Abs Nucleated RBC 0 10^3/uL Neutrophil % 56 % 38-83 Lymphocytes % 38 % 25-47 Monocytes % 3 % 0-13 Reactive Lymph % 3 % 0-6 RBC Morphology Normal Normal Comp Metabolic Panel 06/24/2013 [facility] Sodium 140 mmol/L 133-[address] [place] [address] [phone] Potassium 4.2 mmol/L 3.5-5.0 Chloride 103 mmol/L 101-111 Co2 Carbon Dioxide 32.0 mmol/L 22-32 Anion Gap 5.0 mmol/L 2-11 Glucose 168 mg/dL High 70-100 Blood Urea Nitrogen 17 mg/dL 6-24 Creatinine 0.70 mg/dL 0.50-1.40 BUN/Creatinine Ratio 24.3 High 8-20 Calcium 9.0 mg/dL 8.1-9.9 Total Protein 6.3 g/dL 6.2-8.1 Albumin 3.8 g/dL 3.2-5.2 Globulin 2.5 g/dL 2-4 Albumin/Globulin Ratio 1.5 1-3 Total Bilirubin 0.7 mg/dL 0.4-1.5 Alkaline Phosphatase 71 U/L 30-110 Alt 18 U/L 14-54 Ast 20 U/L 12-42 Egfr Non- 85.4 >60 Egfr 109.8 >60 22 Laboratory test 06/24/2013 [facility] C Reactive < 0.5 mg/dL Less than finding [address] Protein 0.5 [place] [address] [phone] Erythrocyte Sed Rate 43 mm/Hr High 0-30 1 has OV this week 2 Because ethnic data is not always readily available, this report includes an eGFR for both -Americans and non- Americans. The National Kidney Disease Education Program (NKDEP) does not endorse the use of the MDRD equation for patients that are not between the ages of 18 and 70, are , have extremes of body size, muscle mass, or nutritional status, or are non- or non-. According to the National Kidney Foundation, irrespective of diagnosis, the stage of the disease is based on the level of kidney function: Stage Description GFR(mL/min/1.73 m(2)) 1 Kidney damage with normal or decreased GFR 90 2 Kidney damage with mild decrease in GFR 60-89 3 Moderate decrease in GFR 30-59 4 Severe decrease in GFR 15-29 5 Kidney failure <15 (or dialysis) 3 standing order 4 Test Performed by: [facility] [address] [place], [place] [address] Isauro Del Rio M.D. Director of Laboratory 5 Because ethnic data is not always readily available, this report includes an eGFR for both -Americans and non- Americans. The National Kidney Disease Education Program (NKDEP) does not endorse the use of the MDRD equation for patients that are not between the ages of 18 and 70, are , have extremes of body size, muscle mass, or nutritional status, or are non- or non-. According to the National Kidney Foundation, irrespective of diagnosis, the stage of the disease is based on the level of kidney function: Stage Description GFR(mL/min/1.73 m(2)) 1 Kidney damage with normal or decreased GFR 90 2 Kidney damage with mild decrease in GFR 60-89 3 Moderate decrease in GFR 30-59 4 Severe decrease in GFR 15-29 5 Kidney failure <15 (or dialysis) 6 Because ethnic data is not always readily available, this report includes an eGFR for both -Americans and non- Americans. The National Kidney Disease Education Program (NKDEP) does not endorse the use of the MDRD equation for patients that are not between the ages of 18 and 70, are , have extremes of body size, muscle mass, or nutritional status, or are non- or non-. According to the National Kidney Foundation, irrespective of diagnosis, the stage of the disease is based on the level of kidney function: Stage Description GFR(mL/min/1.73 m(2)) 1 Kidney damage with normal or decreased GFR 90 2 Kidney damage with mild decrease in GFR 60-89 3 Moderate decrease in GFR 30-59 4 Severe decrease in GFR 15-29 5 Kidney failure <15 (or dialysis) 7 Acute inflammation: >10.00 8 Because ethnic data is not always readily available, this report includes an eGFR for both -Americans and non- Americans. The National Kidney Disease Education Program (NKDEP) does not endorse the use of the MDRD equation for patients that are not between the ages of 18 and 70, are , have extremes of body size, muscle mass, or nutritional status, or are non- or non-. According to the National Kidney Foundation, irrespective of diagnosis, the stage of the disease is based on the level of kidney function: Stage Description GFR(mL/min/1.73 m(2)) 1 Kidney damage with normal or decreased GFR 90 2 Kidney damage with mild decrease in GFR 60-89 3 Moderate decrease in GFR 30-59 4 Severe decrease in GFR 15-29 5 Kidney failure <15 (or dialysis) 9 Acute inflammation: >10.00 10 standing order Copy Result to: ROWAN HARRIS ([id number]) 11 Copy Result to: ROWAN HARRIS ([id number]) 12 Because ethnic data is not always readily available, this report includes an eGFR for both -Americans and non- Americans. The National Kidney Disease Education Program (NKDEP) does not endorse the use of the MDRD equation for patients that are not between the ages of 18 and 70, are , have extremes of body size, muscle mass, or nutritional status, or are non- or non-. According to the National Kidney Foundation, irrespective of diagnosis, the stage of the disease is based on the level of kidney function: Stage Description GFR(mL/min/1.73 m(2)) 1 Kidney damage with normal or decreased GFR 90 2 Kidney damage with mild decrease in GFR 60-89 3 Moderate decrease in GFR 30-59 4 Severe decrease in GFR 15-29 5 Kidney failure <15 (or dialysis) 13 Acute inflammation: >10.00 14 Because ethnic data is not always readily available, this report includes an eGFR for both -Americans and non- Americans. The National Kidney Disease Education Program (NKDEP) does not endorse the use of the MDRD equation for patients that are not between the ages of 18 and 70, are , have extremes of body size, muscle mass, or nutritional status, or are non- or non-. According to the National Kidney Foundation, irrespective of diagnosis, the stage of the disease is based on the level of kidney function: Stage Description GFR(mL/min/1.73 m(2)) 1 Kidney damage with normal or decreased GFR 90 2 Kidney damage with mild decrease in GFR 60-89 3 Moderate decrease in GFR 30-59 4 Severe decrease in GFR 15-29 5 Kidney failure <15 (or dialysis) 15 Acute inflammation: >10.00 16 PRN EXP: 05/23/16 CC: [id number] 17 Because ethnic data is not always readily available, this report includes an eGFR for both -Americans and non- Americans. The National Kidney Disease Education Program (NKDEP) does not endorse the use of the MDRD equation for patients that are not between the ages of 18 and 70, are , have extremes of body size, muscle mass, or nutritional status, or are non- or non-. According to the National Kidney Foundation, irrespective of diagnosis, the stage of the disease is based on the level of kidney function: Stage Description GFR(mL/min/1.73 m(2)) 1 Kidney damage with normal or decreased GFR 90 2 Kidney damage with mild decrease in GFR 60-89 3 Moderate decrease in GFR 30-59 4 Severe decrease in GFR 15-29 5 Kidney failure <15 (or dialysis) 18 standing order q 6-8 weeks 19 Acute inflammation: >10.00 20 Because ethnic data is not always readily available, this report includes an eGFR for both -Americans and non- Americans. The National Kidney Disease Education Program (NKDEP) does not endorse the use of the MDRD equation for patients that are not between the ages of 18 and 70, are , have extremes of body size, muscle mass, or nutritional status, or are non- or non-. According to the National Kidney Foundation, irrespective of diagnosis, the stage of the disease is based on the level of kidney function: Stage Description GFR(mL/min/1.73 m(2)) 1 Kidney damage with normal or decreased GFR 90 2 Kidney damage with mild decrease in GFR 60-89 3 Moderate decrease in GFR 30-59 4 Severe decrease in GFR 15-29 5 Kidney failure <15 (or dialysis) 21 Acute inflammation: >10.00 22 Because ethnic data is not always readily available, this report includes an eGFR for both -Americans and non- Americans. The National Kidney Disease Education Program (NKDEP) does not endorse the use of the MDRD equation for patients that are not between the ages of 18 and 70, are , have extremes of body size, muscle mass, or nutritional status, or are non- or non-. According to the National Kidney Foundation, irrespective of diagnosis, the stage of the disease is based on the level of kidney function: Stage Description GFR(mL/min/1.73 m(2)) 1 Kidney damage with normal or decreased GFR 90 2 Kidney damage with mild decrease in GFR 60-89 3 Moderate decrease in GFR 30-59 4 Severe decrease in GFR 15-29 5 Kidney failure <15 (or dialysis) Procedures Date Code Description Status 01/21/2019 01330 Perm Pacemaker Av Sequential Atrial And Ventricular Completed 01/19/2019 82745 ECHO Transthorasic Realtime 2D W Doppler & Color Flow Completed Hosp 01/19/2019 81710 ECHO Transthorasic Realtime 2D W Doppler & Color Flow Completed Hosp 01/19/2019 43735 Temp. Pacemaker Insertion Completed 02/12/2018 [id number] Diabetic Retinal Eye Exam Completed 01/26/2017 [id number] Diabetic Retinal Eye Exam Completed 08/21/2016 92988 Needle Electromyography Each Extremity W/Related Completed Paraspinal Areas 08/21/2016 73748 Nerve Conduction 03-04 Studies Completed 11/30/2015 [id number] Diabetic Retinal Eye Exam Completed 04/23/2015 59999 ECHO Transthorasic Realtime 2D W Doppler & Color Flow Completed Hosp 04/23/2015 58318 ECHO Transthorasic Realtime 2D W Doppler & Color Flow Completed Hosp 04/21/2015 63333 EKG, Interpretation Only Completed 02/16/2015 92648 Polysomnography Sleep Staging 4+ Parameters W/Cpap Completed 07/12/2012 28019 Stress ECHO Interpretation/Report Hospital Completed 07/12/2012 02765 Treadmill Interp/Report Only Completed 07/12/2012 43382 Stress Test Supervsn W/Out I/R Completed 05/12/2012 [id number] Bone Mineral Density Test Completed Encounters Type Date Location Provider Dx Diagnosis Office Visit 01/25/2019 [facility] Zeynep Wood, I49.5 Sick sinus 10:31a yolanda Jean MD syndrome Hospitalists Z95.0 Presence of cardiac pacemaker M06.9 Rheumatoid arthritis, unspecified E11.9 Type 2 diabetes mellitus without complications [facility] Un[facility] 10:30a yolanda Jean M.D. atrial Hospitalists fibrillation M25.561 Pain in right knee M25.562 Pain in left knee M06.9 Rheumatoid arthritis, unspecified E11.9 Type 2 diabetes mellitus without complications [facility] Unspecified 10:30a yolanda Jean M.D. atrial Hospitalists fibrillation M25.561 Pain in right knee M25.562 Pain in left knee M06.9 Rheumatoid arthritis, unspecified E11.9 Type 2 diabetes mellitus without complications Office Visit 01/22/2019 [facility] I48.91 Unspecified 10:29a yolanda Jean M.D. atrial Hospitalists fibrillation M25.561 Pain in right knee M25.562 Pain in left knee M06.9 Rheumatoid arthritis, unspecified E11.9 Type 2 diabetes mellitus without complications K21.9 Gastro-esophageal reflux disease without esophagitis E78.5 Hyperlipidemia, unspecified Office Visit 01/21/2019 [facility] I48.91 Unspecified 10:29a yolanda Jean M.D. atrial Hospitalists fibrillation E11.9 Type 2 diabetes mellitus without complications K21.9 Gastro-esophageal reflux disease without esophagitis M06.9 Rheumatoid arthritis, unspecified E78.5 Hyperlipidemia, unspecified [facility] Unspecified atrial 10:28a yolanda Jean D.O. fibrillation Hospitalists E11.9 Type 2 diabetes mellitus without complications K21.9 Gastro-esophageal reflux disease without esophagitis E78.5 Hyperlipidemia, unspecified M06.9 Rheumatoid arthritis, unspecified Office Visit 01/19/2019 [facility] Maria Teresa I48.91 Unspecified atrial 10:28a Assoc,yolanda Root, DO fibrillation Hospitalists E11.9 Type 2 diabetes mellitus without complications M06.9 Rheumatoid arthritis, unspecified K21.9 Gastro-esophageal reflux disease without esophagitis Office Visit 01/19/2019 4:10p [facility] Karel Harley I49.5 Sick sinus Jayme Conn syndrome I48.0 Paroxysmal atrial fibrillation Z79.01 rn long term care (current) use of anticoagulants R94.31 Abnormal electrocardiogram [ECG] [EKG] Office Visit 11/08/2018 9:30a Rheumatology Zsofia M06.09 [facility], EXCELLENCE 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, multiple sites D64.9 Anemia, unspecified D72.829 Elevated white blood cell count, unspecified I49.9 Cardiac arrhythmia, unspecified M25.531 Pain in right wrist M54.2 Cervicalgia Z79.899 Other penitentiary (current) drug therapy Office Visit 08/09/2018 10:00a Rheumatology Zsofia M06.09 [facility], EXCELLENCE 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, multiple sites M54.2 Cervicalgia M54.5 Low back pain D64.9 Anemia, unspecified Z79.899 Other truck terminal manager (current) drug therapy Office Visit 05/03/2018 10:30a Rheumatology Zsofia M06.09 [facility] Vel, EXCELLENCE SPECIALIST arthritis w/o Ccmob rheumatoid factor, multiple sites M25.532 Pain in left wrist M54.2 Cervicalgia Z79.899 Other penitentiary (current) drug therapy Office Visit 12/14/2017 2:00p Rheumatology Zsofia M06.09 [facility], EXCELLENCE SPECIALIST arthritis w/o Ccmob rheumatoid factor, multiple sites Z79.899 Other truck terminal manager (current) drug therapy Z23 Encounter for immunization Office Visit 08/14/2017 9:30a Rheumatology Zsofia M06.09 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, multiple sites M25.559 Pain in unspecified hip M25.569 Pain in unspecified knee M54.2 Cervicalgia J06.9 Acute upper respiratory infection, unspecified Z79.899 Other penitentiary (current) drug therapy M25.551 Pain in right hip M25.552 Pain in left hip Office Visit 05/12/2017 10:30a Rheumatology ofi M06.[address] [facility] Vel [facility] arthritis w/o rheumatoid factor, multiple sites M25.559 Pain in unspecified hip M25.569 Pain in unspecified knee M54.2 Cervicalgia Z79.899 Other truck terminal manager (current) drug therapy Z68.42 Body mass index (BMI) 45.0-49.9, adult Office Visit 03/11/2017 11:40a Rheumatology Services [facility] Vel, M54.2 Cervicalgia Of [facility] G47.33 Obstructive sleep apnea (adult) (pediatric) Office Visit 02/10/2017 11:00a Rheumatology ofi M06.09 [facility], [facility] arthritis w/o rheumatoid factor, multiple sites E11.9 Type 2 diabetes mellitus without complications D64.9 Anemia, unspecified D72.819 Decreased white blood cell count, unspecified Z68.42 Body mass index (BMI) 45.0-49.9, adult Z79.899 Other penitentiary (current) drug therapy Office Visit 12/23/2016 9:30a Rheumatology Zsofi M06.09 [facility] arthritis w/o rheumatoid factor, multiple sites R00.0 Tachycardia, unspecified N18.2 Chronic kidney disease, stage 2 (mild) R79.82 Elevated C-reactive protein (CRP) R70.0 Elevated erythrocyte sedimentation rate Z79.899 Other penitentiary (current) drug therapy Office Visit 12/19/2016 Pulmonology And Sherry G47.33 Obstructive sleep 10:30a Sleep Services Of [facility], RN, apnea (adult) [facility] (pediatric) E66.01 Morbid (severe) obesity due to excess calories Z68.42 Body mass index (BMI) 45.0-49.9, adult Office Visit 09/19/2016 9:00a Rheumatology Zsofi M06.[address] [facility] Vel, [facility] arthritis w/o rheumatoid factor, multiple sites J01.90 Acute sinusitis, unspecified Z79.899 Other truck terminal manager (current) drug therapy Z68.42 Body mass index (BMI) 45.0-49.9, adult Office Visit 07/23/2016 Neurohospitalist Kermit Michael R25.1 Tremor, 9:30a Clinic Jayme Bunch unspecified R42 Dizziness and giddiness G93.5 Compression of brain Office Visit 06/20/2016 Pulmonology And Sherry G47.33 Obstructive sleep 8:00a [facility] RN, apnea (adult) [facility]- (pediatric) E66.01 Morbid (severe) obesity due to excess calories Z68.42 Body mass index (BMI) 45.0-49.9, adult Office Visit 05/28/2016 8:00a Rheumatology Zsofia M06.09 Rheumatoid Services Of [facility], [facility] arthritis w/o rheumatoid factor, multiple sites E66.01 Morbid (severe) obesity due to excess calories Z79.899 Other truck terminal manager (current) drug therapy Office Visit 05/14/2016 11:00a Neurohospitalist Kermit Michael R42 Dizziness and Clinic Jayme Bunch giddiness R25.1 Tremor, unspecified I48.91 Unspecified atrial fibrillation M06.9 Rheumatoid arthritis, unspecified Office Visit 02/26/2016 8:00a Rheumatology Zsofia M06.[address] [facility] Vel, [facility] arthritis w/o rheumatoid factor, multiple sites M25.511 Pain in right shoulder M25.512 Pain in left shoulder R25.1 Tremor, unspecified E66.01 Morbid (severe) obesity due to excess calories Z79.899 Other truck terminal manager (current) drug therapy E11.65 Type 2 diabetes mellitus with hyperglycemia Office Visit 01/11/2016 Pulmonology And Sherry G47.33 Obstructive sleep 8:45a [facility] RN, apnea (adult) [facility] (pediatric) Office Visit 11/23/2015 Rheumatology Rukhsanaofinegro Crowder, M06.09 Rheumatoid 8:00a Services Of [facility] arthritis w/o rheumatoid factor, multiple sites D72.819 Decreased white blood cell count, unspecified D64.9 Anemia, unspecified E66.01 Morbid (severe) obesity due to excess calories Z79.899 Other truck terminal manager (current) drug therapy Office Visit 10/12/2015 Pulmonology And Sherry G47.33 Obstructive sleep 2:00p [facility] RN, apnea (adult) [facility] (pediatric) Office Visit 08/23/2015 Rheumatology Halle Crowder, M06.09 Rheumatoid 9:00a Services Of [facility] arthritis w/o rheumatoid factor, multiple sites R70.0 Elevated erythrocyte sedimentation rate D64.9 Anemia, unspecified E66.01 Morbid (severe) obesity due to excess calories Z79.899 Other penitentiary (current) drug therapy Office Visit 06/12/2015 Pulmonology And Sherry G47.33 Obstructive sleep 8:15a [facility] RN, apnea (adult) [facility] (pediatric) E66.01 Morbid (severe) obesity due to excess calories Office Visit 05/24/2015 8:30a Rheumatology Halle Crowder, 714.0 Rheumatoid Services Of [facility] Arthritis 327.23 Obstructive Sleep Apnea Adult & Pediatric 427.31 Atrial Fibrillation V58.69 Medications Wax Pumper (Current) Use Encounter 278.01 Obesity Morbid Office Visit 05/01/2015 Pulmonology And Sherry 327.23 Obstructive Sleep 9:15a [facility] Of [facility] RN, Apnea Adult & [facility] Office Visit 04/23/2015 [facility] Norah Enamorado, 427.31 Atrial 11:33a Assoc,pc D.O. Fibrillation Hospitalists 250.00 Diabetes Mellitus W/O Compl Type II Or Unspec Controlled 714.0 Rheumatoid Arthritis Office Visit 04/21/2015 [facility] Wilner Bhatia 427.31 Atrial 11:32a Assoc,pc II, M.D. Fibrillation Hospitalists 714.0 Rheumatoid Arthritis 250.00 Diabetes Mellitus W/O Compl Type II Or Unspec Controlled Office Visit 03/13/2015 Pulmonology And Sherry 327.23 Obstructive Sleep 8:15a Sleep [facility] Of [facility] RN, Apnea Adult & [facility] Pediatric Office Visit 02/21/2015 Rheumatology Halle Crowder, 714.0 Rheumatoid 8:30a Services Of [facility] Arthritis 288.50 Leukocytopenia, Unspecified V58.69 Medications Prison (Current) Use Encounter Office Visit 12/13/2014 1:30p Pulmonology And Katelyn 278.01 Obesity Morbid Sleep Services Of MD Tana [facility] 785.1 Palpitations 780.53 Hypersomnia W/ Sleep Apnea Unspecified Office Visit 11/21/2014 8:30a Rheumatology Halle Crowder 714.[address] [facility] EXCELLENCE SPECIALIST Arthritis V58.69 Medications Wax Pumper (Current) Use Encounter Office Visit 08/22/2014 8:30a Rheumatology Halle Crowder 714.[address] [facility] EXCELLENCE SPECIALIST Arthritis 715.96 Osteoarthrosis Unspec Genlzd Or Localized Lower Leg 790.6 Abnormal Blood Chemistry Other 727.3 Bursitis Other V58.69 Medications Prison (Current) Use Encounter Office Visit 07/14/2014 1:40p Rheumatology Efrem Pyle 714.[address] [facility] M.D. Arthritis 715.96 Osteoarthrosis Unspec Genlzd Or Localized Lower Leg 790.6 Abnormal Blood Chemistry Other 727.3 Bursitis Other V58.69 Medications Wax Pumper (Current) Use Encounter Office Visit 05/23/2014 2:30p Rheumatology Halle Crowder 714.[address] [facility] EXCELLENCE SPECIALIST Arthritis 790.6 Abnormal Blood Chemistry Other 278.01 Obesity Morbid V58.69 Medications Wax Pumper (Current) Use Encounter Office Visit 03/09/2014 8:30a Rheumatology Halle Crowder 714.[address] [facility] EXCELLENCE SPECIALIST Arthritis 790.6 Abnormal Blood Chemistry Other V58.69 Medications Prison (Current) Use Encounter Office Visit 12/15/2013 10:00a Rheumatology Halle Crowder 714.[address] [facility] EXCELLENCE SPECIALIST Arthritis V58.69 Medications Prison (Current) Use Encounter 354.0 Carpal Tunnel Syndrome Office Visit 09/22/2013 9:30a Rheumatology Tyler Ortega4.[address] [facility] EXCELLENCE SPECIALIST Arthritis 719.47 Pain Joint Ankle & Foot V58.69 Medications Wax Pumper (Current) Use Encounter Office Visit 06/24/2013 1:00p Rheumatology Tyler Ortega4.[address] [facility] EXCELLENCE SPECIALIST Arthritis V58.69 Medications Wax Pumper (Current) Use Encounter 719.47 Pain Joint Ankle & Foot Office Visit 04/01/2013 1:00p Rheumatology Tyler Ortega4.[address] [facility] EXCELLENCE SPECIALIST Arthritis V58.69 Medications Wax Pumper (Current) Use Encounter 719.47 Pain Joint Ankle & Foot Office Visit 01/07/2013 8:20a Rheumatology Zsofia Vel, 714.[address] [facility] EXCELLENCE SPECIALIST Arthritis 715.96 Osteoarthrosis Unspec Genlzd Or Localized Lower Leg V58.69 Medications Wax Pumper (Current) Use Encounter 278.01 Obesity Morbid Office Visit 10/11/2012 Rheumatology Halle 715.96 Osteoarthrosis 1:40p Services Of [facility] Vel, EXCELLENCE SPECIALIST Unspec Genlzd Or Localized Lower Leg 714.0 Rheumatoid Arthritis 724.02 Spinal Stenosis, Lumbar Region, W/O Neurogenic Claudication V58.69 Medications Prison (Current) Use Encounter Office Visit 07/15/2012 9:40a Rheumatology Efrem Pyle, 714.[address] [facility] M.D. Arthritis V58.69 Medications Wax Pumper (Current) Use Encounter 724.02 Spinal Stenosis, Lumbar Region, W/O Neurogenic Claudication 715.96 Osteoarthrosis Unspec Genlzd Or Localized Lower Leg Office Visit 05/06/2012 9:40a Rheumatology Efrem Pyle, 714.0 Rheumatoid Services Of Confidential Investigator M.D. 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 M.D. Arthritis V58.69 Medications Wax Pumper (Current) Use Encounter Office Visit 12/08/2011 10:20a Rheumatology Efrem Pyle, 714.0 Rheumatoid Services Of Confidential Investigator M.D. Arthritis V58.69 Medications Prison (Current) Use Encounter 721.3 Spondylosis Lumbar W/O Myelopathy Office Visit 09/25/2011 1:00p Rheumatology Efrem Pyle, 714.0 Rheumatoid Services Of Confidential Investigator M.D. Arthritis V58.69 Medications Prison (Current) Use Encounter 721.3 Spondylosis Lumbar W/O Myelopathy 724.02 Spinal Stenosis, Lumbar Region, W/O Neurogenic Claudication Office Visit 07/10/2011 11:40a Rheumatology Efrem Pyle, 714.0 Rheumatoid Services Of Confidential Investigator M.D. Arthritis V58.69 Medications Wax Pumper (Current) Use Encounter Office Visit 04/24/2011 8:40a Rheumatology Efrem Pyle, 714.[address] [facility] M.D. 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 Unspec Genlzd Or Localized Lower Leg 714.0 Rheumatoid Arthritis Plan of Treatment Future Appointment(s):05/23/2019 8:30 am - CELINE Ortega at [facility] - [facility]/11/2018 - CLARI OrtegaPM06.09 Rheumatoid arthritis without rheumatoid factor, multiple sitComments:We discussed that we will stop the Hydroxychloroquine and will monitor if your inflammatory markers stay in the normal range and your joint symptoms are stableWill get labs prior to next visit.Z95.0 Presence of cardiac [id number] Type 2 diabetes mellitus without complicationsComments:Call Dr. Harris for a referral to nutritional [id number] rn long term care (current) use of anticoagulantsComments:You can use Tylenol as needed for pain.You should not take Ibuprofen, Advil and Aleve.Z79.899 Other penitentiary (current) drug therapy
[2019-03-13 16:09] VITALS: BP 136/77
--- NOTE | 2019-03-13 16:19 | UC ---
Knee Pain HPI - HPI Summary HPI Summary: Patient is a 68 year old female, who presents today to the urgent care with right knee pain since yesterday. She has a history of rheumatoid arthritis and osteoarthritis and status post left knee TKR. Reports that she fell yesterday after her sandal got stuck in the area around and she sustained a twisting injury and landed on her side but did not land on her knee. Pain is anteromedial with associated swelling. She is hurting to weight-bear and using a cane but she is able to bear weight on the right side. She took Tylenol without much relief in the morning today. - History of Current Complaint Chief Complaint: UCLowerExtremity Stated Complaint: RT KNEE PAIN Time Seen by Provider: 03/13/19 16:06 Hx Obtained From: Patient Hx Last Menstrual Period: post Pain Intensity: 10 - Allergies/Home Medications Allergies/Adverse Reactions: Allergies Allergy/AdvReac Type Severity Reaction Status Date / Time atorvastatin Allergy Leg Cramps Verified 03/13/19 16:11 Home Medications: Home Medications Propafenone HCl [Propafenone HCl ER] 225 mg PO BID 03/13/19 [History Confirmed 03/13/19] Spironolactone TAB* [Aldactone TAB 25 MG*] 0.5 tab PO DAILY 03/13/19 [History Confirmed 03/13/19] Triamcinolone Aceton/0.9% NaCl [Triamcinolone Acet 50 mg/ml Vl] 2 spray BOTH NARES DAILY 03/13/19 [History Confirmed 03/13/19] PMH/Surg Hx/FS Hx/Imm Hx - Additional Past Medical History Additional PMH: Past Medical History : Rheumatoid arthritis, atrial flutter/sick sinus syndrome , type 2 diabetes mellitus Past Surgical History: Left knee TKR, pacemaker placed in January 2019 Family History : non contributory Social History : No alcohol use, non smoker, no drug use Previously Healthy: Yes Other History Of: Negative For: Anticoagulant Therapy - Surgical History Surgical History: Yes Surgery Procedure, Year, and Place: left total knee replacement; hysterectomy, HEART CATH - NO STENTS. pacemaker, January 21, 2019 - Family History Known Family History: Negative: Blood Disorder - Social History Alcohol Use: None Substance Use Type: None Smoking Status (MU): Never Smoked Tobacco - Immunization History Most Recent Influenza Vaccination: jun 2014 Most Recent Tetanus Shot: unk Most Recent Pneumonia Vaccination: never Review of Systems All Other Systems Reviewed And Are Negative: Yes Constitutional: Positive: Negative Skin: Positive: Negative Eyes: Positive: Negative ENT: Positive: Negative Respiratory: Positive: Negative Cardiovascular: Positive: Negative Gastrointestinal: Positive: Negative Genitourinary: Positive: Negative Motor: Positive: Negative Musculoskeletal: Positive: Arthralgia - Right knee pain, Decreased ROM - Right knee, painful, Edema - Right knee Neurological: Positive: Negative Psychological: Positive: Negative Is Patient Immunocompromised?: No Physical Exam - Summary Physical Exam Summary: Vital Signs Reviewed: Yes A+Ox3, no distress Eyes: Conjunctiva Clear ENT: Hearing grossly normal neck: supple Respiratory: Positive: No respiratory distress, No accessory muscle use Cardiovascular: skin color reflect adequate perfusion Neurological: Positive: Alert, ambulatory without difficulty Psychological: Positive: Normal Response To Family Skin: Positive: no rash, no ecchymosis Gait: Using a cane to ambulate. Right Knee: limited exam due to pain Insp/Palp: mild Joint effusion noted, there is tenderness to palpation in the medial joint line Strength: 5/5 ROM: Limited and painful range of motion Special Tests: Anterior drawer test is negative. Posterior drawer test is negative. Valgus stress test at 0 and 30 degrees flexion is negative. Varus stress test at 0 and 30 degrees flexion is negative. Morena's test is painful. Triage Information Reviewed: Yes Vital Signs: Initial Vital Signs Temp 97.8 F 03/13/19 15:57 Pulse 108 03/13/19 15:57 Resp 17 03/13/19 15:57 BP 136/77 03/13/19 15:57 Pulse Ox 98 03/13/19 15:57 Vital Signs Reviewed: Yes Diagnostics - Radiology No standard instances Radiology Interpretation Completed By: Radiologist - Right knee x-ray: Degenerative changes lateral compartment right knee as well as the patellofemoral joint with small joint effusion. Knee Pain Course/Dx - Course Course Of Treatment: During the visit today, we obtained right knee x-rays: IMPRESSION: Degenerative changes lateral compartment right knee as well as the patellofemoral joint with small joint effusion. Right knee joint strain versus osteoarthritis flare. We discussed the findings and further option trial of immobilizer and plan to hold off. Tylenol 500 mg 2 tablets twice daily as needed, ice 15 minutes at a time Gentle range of motion and follow up with orthopedics. She has seen Dr. Mcintosh in the past and would like to follow up with Dr. Mcintosh. Patient expressed understanding . - Differential Dx/Diagnosis Provider Diagnosis: Right knee pain, Osteoarthritis of right knee Discharge - Sign-Out/Discharge Documenting (check all that apply): Patient Departure All imaging exams completed and their final reports reviewed: Yes - Discharge Plan Condition: Stable Disposition: HOME Patient Education Materials: Knee Pain (ED) Referrals: Nirav Newell MD [Medical Doctor] - 1 Week Natalie Harris MD [Primary Care Provider] - Shakir Mcintosh MD [Medical Doctor] - 3 Days Additional Instructions: Tylenol 500 mg 2 tablets twice daily as needed, ice 15 minutes at a time Gentle range of motion exercises Follow up with orthopedics in 2-3 days Patients blood pressure slightly high in Urgent care today , plan follow up with PCP for better control Return to Urgent care / ER if symptoms get worse. - Billing Disposition and Condition Condition: STABLE Disposition: Home
== END 2019-03-13 17:35 | disposition home or self-care (01) ==
LOC: UCEAST 15:55
DX: M17.11 Unilateral primary osteoarthritis, right knee (principal); E11.9 Type 2 diabetes mellitus without complications
CPT/HCPCS: 99211; G0463